=== PATIENT | male | born 1940 | race Caucasian/White ===

== ENCOUNTER 2019-09-30 15:06 | Observation (INO) | payer MEDICARE ==
[2019-09-30] MEDS ORDERED: MORPHINE SULFATE 4 MG/ML SYRINGE IVP STA (15:18)
--- NOTE | 2019-09-30 15:18 | ED ---
Chest Pain HPI - General Chief Complaint: Chest Pain Stated Complaint: Chest pain Time Seen by Provider: 09/30/19 15:10 Source: EMS Mode of arrival: EMS Limitations: no limitations - History of Present Illness Initial Comments: The patient is a 79-year-old male with past medical history of hypertension hyperlipidemia presents to the emergency department reporting chest pain. He states it started 3 days ago and has been intermittent. Pain is getting worse. He saw Dr. Foote in office today for the pain. He describes it as pleuritic in nature. Hurts with every inspiration. Denies reproduction with palpation. Denies history of DVT or PE. No lower externally swelling. No calf pain. No recent travel. No exogenous hormone use. No history of cancer. He denies feeling shortness of breath. No nausea, vomiting or diaphoresis. No history of cardiac disease. Denies ever having stress test or catheterization. Denies cough or shortness of breath The remainder of the HPI is limited as the patient is a poor historian. - Related Data Home Medications Medication Instructions Recorded Confirmed Donepezil [Aricept] 10 mg PO HS 09/15/15 09/30/19 Escitalopram [Lexapro] 20 mg PO DAILY 09/15/15 09/30/19 Furosemide [Lasix] 20 mg PO DAILY 09/15/15 09/30/19 Melatonin 3 mg PO HS 09/15/15 09/30/19 Montelukast [Singulair] 10 mg PO HS 09/15/15 09/30/19 Simvastatin [Zocor] 20 mg PO HS 09/15/15 09/30/19 hydrALAZINE HCL [Apresoline] 50 mg PO BID 09/30/19 09/30/19 tiZANidine HCL 4 mg PO Q6H 09/30/19 09/30/19 Allergies Allergy/AdvReac Type Severity Reaction Status Date / Time No Known Allergies Allergy Verified 09/30/19 17:39 Review of Systems ROS Statement: Those systems with pertinent positive or pertinent negative responses have been documented in the HPI. ROS Other: All systems not noted in ROS Statement are negative. EKG Findings - EKG Comments: EKG Findings:: EKG demonstrates normal sinus rhythm with a ventricular rate of 74. NC interval 186. QRS 102. QTC of 446. No acute ST segment elevations or depressions concerning for ischemic changes Past Medical History Past Medical History: Hyperlipidemia, Hypertension Additional Past Medical History / Comment(s): trauma from fall in 2004 History of Any Multi-Drug Resistant Organisms: None Reported Past Surgical History: Back Surgery, Joint Replacement, Orthopedic Surgery Additional Past Surgical History / Comment(s): orthopedic surgeries from trauma, neck Past Psychological History: Depression Smoking Status: Former smoker Past Alcohol Use History: None Reported Past Drug Use History: None Reported General Exam Limitations: no limitations General appearance: alert, in no apparent distress Head exam: Present: atraumatic, normocephalic, normal inspection Eye exam: Present: normal appearance, PERRL, EOMI. Absent: scleral icterus, conjunctival injection, periorbital swelling ENT exam: Present: normal exam, mucous membranes moist Neck exam: Present: normal inspection. Absent: tenderness, meningismus, lymphadenopathy Respiratory exam: Present: normal lung sounds bilaterally. Absent: respiratory distress, wheezes, rales, rhonchi, stridor Cardiovascular Exam: Present: regular rate, normal rhythm, normal heart sounds. Absent: systolic murmur, diastolic murmur, rubs, gallop, clicks GI/Abdominal exam: Present: soft, normal bowel sounds. Absent: distended, tenderness, guarding, rebound, rigid Extremities exam: Present: normal inspection, full ROM, normal capillary refill. Absent: tenderness, pedal edema, joint swelling, calf tenderness Back exam: Present: normal inspection Neurological exam: Present: alert, oriented X3, CN II-XII intact Psychiatric exam: Present: normal affect, normal mood Skin exam: Present: warm, dry, intact, normal color. Absent: rash Course Vital Signs 09/30/19 09/30/19 09/30/19 15:10 17:19 18:07 Temperature 98.3 F Pulse Rate 75 86 72 Respiratory 16 16 16 Rate Blood Pressure 141/77 161/89 165/94 O2 Sat by Pulse 99 99 98 Oximetry - Reevaluation(s) Reevaluation #1: 09/30/19 17:[address] Foote and we will not heparinize the patient Chest Pain MDM - MDM Upon arrival the patient is placed in room 10. A thorough history and physical exam was performed. PIV is established. Laboratory studies were conducted. D- dimer elevated at 1.5. First troponin is negative. Patient does have a chest x-ray performed followed by a CT of the chest because of elevated d-dimer with reported pleuritic chest pain. Does demonstrate a wall defect in the right pulmonary artery measuring 8 mm concerning for a possible chronic thrombus. I discussed the case with the patient. Also discussed case with Dr. Foote. We agreed to not heparinize the patient. He'll be admitted for chest pain rule out. I will consult pulmonology and cardio G. Patient remained in stable condition. He is given 4 mg morphine for pain control and had resolution of his pain. Patient was then transferred to the floor in stable condition Disposition Clinical Impression: Chest pain, Filling defect on imaging study Disposition: ADMITTED IP TO THIS [facility] Condition: Stable Is patient prescribed a controlled substance at d/c from ED?: No Decision to Admit Reason: Admit from EC Decision Date: 09/30/19 Decision Time: 17:31
[2019-09-30 15:34] LABS: Basophils % (A) 1 %; Eosinophils # (A) 0.2 k/uL (0-0.7); Eosinophils % (A) 4 %; HCT 37.6 % (39.0-53.0); HGB 12.4 gm/dL (13.0-17.5); Lymphocytes % (A) 21 %; MCH 28.7 pg (25.0-35.0); MCHC 32.9 g/dL (31.0-37.0); MCV 87.1 fL (80.0-100.0); Mean Platelet Volume 8.4; Monocytes # (A) 0.4 k/uL (0-1.0); Monocytes % (A) 8 %; Neutrophils # (A) 2.9 k/uL (1.3-7.7); Neutrophils % (A) 64 %; Platelet Count 260 k/uL (150-450); RBC 4.32 m/uL (4.30-5.90); RDW 15.6 % (11.5-15.5); WBC 4.6 k/uL (3.8-10.6)
--- NOTE | 2019-09-30 15:48 | XR ---
EXAMINATION TYPE: XR chest 2V DATE OF EXAM: 09/30/2019 COMPARISON: Chest x-ray July 08, 2014 HISTORY: Chest pain for 3 days. TECHNIQUE: Frontal and lateral views of the chest are obtained. FINDINGS: Somewhat low lung volumes redemonstrated. There is no focal air space opacity, pleural eff usion, or pneumothorax seen. The cardiac silhouette size is stable and upper limits of normal with a therosclerotic and ectatic thoracic aorta redemonstrated. Surgical change cervical spine along with b oth shoulders is redemonstrated. IMPRESSION: Chronic changes without new acute pulmonary process.
[2019-09-30 15:54] LABS: INR 0.9 (<1.2); Partial Thromboplastin Time 25.1 sec (22.0-30.0); Prothrombin Time 9.7 sec (9.0-12.0)
[2019-09-30 15:56] LABS: D-Dimer 1.55 mg/L FEU (<0.60)
[2019-09-30 16:33] LABS: Albumin 4.2 g/dL (3.5-5.0); Calcium 9.3 mg/dL (8.4-10.2); Magnesium 2.1 mg/dL (1.6-2.3); Potassium 4.3 mmol/L (3.5-5.1); Total Bilirubin 0.4 mg/dL (0.2-1.3); Total Protein 7.2 g/dL (6.3-8.2)
--- NOTE | 2019-09-30 17:21 | CT ---
EXAMINATION TYPE: CT chest angio for PE DATE OF EXAM: 09/30/2019 COMPARISON: None HISTORY: Chest pain. Elevated d-dimer. CT DLP: 746.4 mGycm Automated exposure control for dose reduction was used. CONTRAST: Performed with IV Contrast, patient injected with 100 mL of Isovue 370. There is some mild subsegmental atelectasis at the lung bases. There is no evidence of a pulmonary ma ss. There is no pleural effusion. There is no pericardial effusion. Heart is normal in size. There are no hilar masses. There is no mediastinal adenopathy. There are lar ge central pulmonary arteries. There is 8 mm filling defect on the posterior wall of the right pulmon henna artery. This could be some chronic thrombus adherent to the wall. I see no definite distal pulmon henna embolism.The smaller branches of the pulmonary arteries appear attenuated in the lower lobes on t he right side more than the left. There are spondylotic multilevel changes in the thoracic spine. There is no compression fracture. Kristofer rnum is intact. The ribs appear intact. IMPRESSION: Wall defect in the right pulmonary artery. There is pruning and attenuation of the lower lobe pulmona ry arteries on the right side more than the left. This could be the sequela of chronic pulmonary embo lism. I do not see evidence for acute pulmonary embolism. No right heart enlargement seen. Mild interstitial density and subsegmental atelectasis at the lung bases.
[2019-09-30] MEDS ORDERED: NALOXONE 0.4 MG/ML 1 ML VIAL IV PRN (17:32)
[2019-09-30] MEDS ORDERED: MORPHINE SULFATE 2 MG/ML SYRINGE IVP PRN (19:56)
[2019-09-30] MEDS: MELATONIN 3 MG TABLET PO SCH (21:21)
[2019-09-30] MEDS: hydrALAZINE HCL 50 MG TAB PO SCH (21:21)
[2019-09-30] MEDS: ATORVASTATIN 10 MG TAB PO SCH (21:21)
[2019-09-30] MEDS: MONTELUKAST 10 MG TAB PO SCH (21:21)
[2019-09-30] MEDS: tiZANidine 4 MG TAB PO SCH (21:22)
[2019-09-30] MEDS: DONEPEZIL 10 MG TAB PO SCH (21:22)
--- NOTE | 2019-10-01 07:57 | P.HPIM ---
History of Present Illness H&P Date: 10/01/19 Chief Complaint: Chest pain This is a history of physical 71-year-old white male with history of hypertension and hyperlipidemia severe DJD and history of opiate dependence who, has not been seen in the office in the last year was consequently dropped off by his for significant chest pressure. No acute ST-T wave elevation however there were EKG changes which were somewhat vague, and because of his overall symptomatology with substernal chest pressure he was appropriately admitted for rule out myocardial infraction. The patient states some dizziness and has been pain free this morning. No nausea no vomiting no diaphoresis but there is significant dyspnea on exertion. No edema or orthopnea stated. Review of Systems Constitutional: Denies chills, Denies fever Eyes: denies blurred vision, denies pain Ears, nose, mouth and throat: Denies headache, Denies sore throat Cardiovascular: Reports as per HPI, Reports chest pain, Reports decreased exe rcise tolerance, Denies edema, Denies shortness of breath Respiratory: Denies cough Gastrointestinal: Denies abdominal pain, Denies diarrhea, Denies nausea, Denies vomiting Musculoskeletal: Denies myalgias Past Medical History Past Medical History: Hyperlipidemia, Hypertension Additional Past Medical History / Comment(s): trauma from fall in 2004 History of Any Multi-Drug Resistant Organisms: None Reported Past Surgical History: Back Surgery, Joint Replacement, Orthopedic Surgery Additional Past Surgical History / Comment(s): orthopedic surgeries from trauma, neck Past Psychological History: Depression Smoking Status: Former smoker Past Alcohol Use History: None Reported Past Drug Use History: None Reported Medications and Allergies Home Medications Medication Instructions Recorded Confirmed Type Donepezil [Aricept] 10 mg PO HS 09/15/15 09/30/19 History Escitalopram [Lexapro] 20 mg PO DAILY 09/15/15 09/30/19 History Furosemide [Lasix] 20 mg PO DAILY 09/15/15 09/30/19 History Melatonin 3 mg PO HS 09/15/15 09/30/19 History Montelukast [Singulair] 10 mg PO HS 09/15/15 09/30/19 History Simvastatin [Zocor] 20 mg PO HS 09/15/15 09/30/19 History hydrALAZINE HCL [Apresoline] 50 mg PO BID 09/30/19 09/30/19 History tiZANidine HCL 4 mg PO Q6H 09/30/19 09/30/19 History Allergies Allergy/AdvReac Type Severity Reaction Status Date / Time No Known Allergies Allergy Verified 09/30/19 17:39 Physical Exam Vitals: Vital Signs Temp Pulse Pulse Resp BP BP Pulse Ox 10/01/19 04:00 61 16 10/01/19 03:33 97.6 F 61 16 150/72 97 10/01/19 00:00 98.7 F 70 16 157/83 95 09/30/19 20:00 91 16 09/30/19 19:30 91 16 193/82 96 09/30/19 18:45 98.1 F 72 18 172/91 94 L 09/30/19 18:07 72 16 165/94 98 09/30/19 17:19 86 16 161/89 99 09/30/19 15:10 98.3 F 75 16 141/77 99 Intake and Output 09/30/19 10/01/19 10/01/19 22:59 06:59 14:59 Intake Total 480 Balance 480 Intake: Oral 480 Other: # Voids 1 1 Weight 113.398 kg Results CBC & Chem 7: 09/30/19 15:22 09/30/19 15:22 Labs: Abnormal Lab Results - Last 24 Hours (Table) 09/30/19 09/30/19 09/30/19 Range/Units 15:22 15:22 15:22 Hgb 12.4 L (13.0-17.5) gm/dL Hct 37.6 L (39.0-53.0) % RDW 15.6 H (11.5-15.5) % D-Dimer 1.55 H (<0.60) mg/L FEU Chloride 109 H (98-107) mmol/L Thrombosis Risk Factor Assmnt - Choose All That Apply Each Factor Represents 1 point: Obesity (BMI >25), Swollen legs (current) Other Risk Factors: No Other congenital or acquired thrombophilia - If yes, enter type in comment: No Thrombosis Risk Factor Assessment Total Risk Factor Score: 2 Thrombosis Risk Factor Assessment Level: Low Risk Assessment and Plan (1) Hypertension Current Visit: Yes Status: Acute Code(s): I10 - ESSENTIAL (PRIMARY) HYPERTENSION SNOMED Code(s): 56936221 (2) Hyperlipidemia Current Visit: Yes Status: Acute Code(s): E78.5 - HYPERLIPIDEMIA, UNSPECIFIED SNOMED Code(s): 56557214 (3) DJD (degenerative joint disease) Current Visit: Yes Status: Acute Code(s): M19.90 - UNSPECIFIED OSTEOARTHRITIS, UNSPECIFIED SITE SNOMED Code(s): 880622270 (4) Chest pain Current Visit: Yes Status: Acute Code(s): R07.9 - CHEST PAIN, UNSPECIFIED SNOMED Code(s): 63960169 (5) Filling defect on imaging study Current Visit: Yes Status: Acute Code(s): R93.89 - ABNORMAL FINDINGS ON DX IMAGING OF OTH BODY STRUCTURES SNOMED Code(s): 77865169 Plan: Possible chronic filling defect noted on CT. Rule out myocardial infarction. Reconcile medications. Engineer Byproduct consulted-question need for appropriate cardiac testing. The patient is full code at this time. See orders otherwise. Time with Patient: Greater than 30
[2019-10-01 08:45] LABS: African American GFR (CKD) >90 (>60 ml/min/1.73 sqM); Anion Gap 6 mmol/L; Blood Urea Nitrogen 19 mg/dL (9-20); Calcium 8.6 mg/dL (8.4-10.2); Carbon Dioxide 26 mmol/L (22-30); Chloride 107 mmol/L (98-107); Glucose 88 mg/dL (74-99); Non-African American GFR(CKD) 84 (>60 ml/min/1.73 sqM); Potassium 4.1 mmol/L (3.5-5.1); Sodium 139 mmol/L (137-145)
[2019-10-01 09:37] LABS: Basophils % (A) 1 %; Eosinophils # (A) 0.2 k/uL (0-0.7); Eosinophils % (A) 5 %; HCT 34.9 % (39.0-53.0); HGB 11.4 gm/dL (13.0-17.5); Lymphocytes % (A) 30 %; MCH 28.9 pg (25.0-35.0); MCHC 32.5 g/dL (31.0-37.0); MCV 88.8 fL (80.0-100.0); Mean Platelet Volume 7.5; Monocytes # (A) 0.3 k/uL (0-1.0); Monocytes % (A) 8 %; Neutrophils # (A) 1.8 k/uL (1.3-7.7); Neutrophils % (A) 54 %; Platelet Count 199 k/uL (150-450); RBC 3.93 m/uL (4.30-5.90); RDW 15.9 % (11.5-15.5); WBC 3.3 k/uL (3.8-10.6)
[2019-10-01] MEDS ORDERED: MORPHINE SULFATE 2 MG/ML SYRINGE IVP PRN (10:33)
[2019-10-01] MEDS: FUROSEMIDE 20 MG TAB PO SCH (10:40)
[2019-10-01] MEDS: tiZANidine 4 MG TAB PO SCH ×4 (10:40→23:46)
[2019-10-01] MEDS: hydrALAZINE HCL 50 MG TAB PO SCH ×2 (10:40→20:41)
[2019-10-01] MEDS: ESCITALOPRAM 20 MG TAB PO SCH (10:40)
--- NOTE | 2019-10-01 11:35 | CONS ---
CONSULTATION PULMONARY/CRITICAL CARE CONSULTATION: DATE OF SERVICE: 10/01/2019 REASON FOR CONSULTATION: Chest pain, abnormal CT angiogram. This is a 79-year-old gentleman who was initially seen in the emergency room on September 29. He apparently was evaluated by Dr. Blackwood. The patient apparently came into the emergency room complaining of chest pain. It apparently had been going on for a day or two prior to admission. The pain now is completely dissipated. He describes it as a sharp pain and also a dull pain in the center of his chest. I asked him whether or not it was reproducible and he said no. He denies any injury. He does have a history of hypertension and hyperlipidemia. He does also complain of some mild shortness of breath on exertion. Some features of the pain appear to be pleuritic in nature in that it seems to be a bit worse when he takes a deep breath. The pain is more dull, than sharp though. He denies any fever or chills. There is no cough or phlegm production. He is not short of breath at rest only when he exerts himself. He denies history of any chronic lung disease. Denies any trauma to his chest. Again, he states that currently, the chest pain is dissipated. Interestingly, when I palpate the anterior chest, he almost jumps off the bed. MEDICATIONS: Reviewed. He has a history of being on Aricept, Lexapro, Lasix melatonin, Singulair, Zocor, Apresoline, and tizanidine. ALLERGIES: Denied. MEDICAL HISTORY: Hypertension and hyperlipidemia. He denies a previous history of lung disease. Other medical history includes trauma to his chest and back years ago when he fell, back in 2004. SURGICAL HISTORY: Includes surgery to the back and neck area as well as joint replacement. SOCIAL HISTORY: Positive for about 50 years of tobacco use many years back. He smoked a pack a day. 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 Denies any alcohol or any illicit drug use. FAMILY HISTORY: Noncontributory as he states his parents were healthy. REVIEW OF SYSTEMS: CONSTITUTIONAL: Negative. NEUROLOGIC: Negative. HEENT: Negative. CARDIOVASCULAR: Chest pain. PULMONARY: Shortness of breath on exertion, minimal. GI: Negative. : Negative. RHEUMATOLOGIC: Negative. IMMUNOLOGIC: Negative. ENDOCRINOLOGIC: Negative. DERMATOLOGIC: Negative. Current vital signs are reviewed, temperature is 97.6, heart rate 61, respiratory rate 16, blood pressure 150/72, room air saturation 97%. Appears in no acute distress. HEENT: Examination is unremarkable. Not receiving any supplemental oxygen. NECK: Supple. CARDIOVASCULAR: Examination reveals regular rhythm and rate. S1, S2 normal. Heart rate is about 60 to 65 beats per minute. No murmur. LUNGS: Clear, breath sounds equal. No wheezes, rhonchi, or crackles. ABDOMEN: Obese. Bowel sounds are heard. EXTREMITIES: Intact. No edema. SKIN: Without rash. NEUROLOGIC: Examination is nonfocal. When I palpate the anterior chest, the patient nearly jumps off the bed. It is clearly reproducible and likely musculoskeletal in origin. LABS: Reviewed. White count 4.6, hemoglobin 12.4, hematocrit 37.6, platelet count 260,000. PT, INR, PTT all normal. D-dimer was elevated 155, hence the CT angiogram. The electrolytes are essentially all normal. Troponins were negative x3. N terminal proBNP normal. The rest of the comprehensive metabolic profile was normal. Chest x-ray shows no acute abnormalities. CT angiogram was evaluated by herself. It does show a small wall defect measuring about 8 mm in the right pulmonary artery. There is nothing that suggested acute pulmonary embolism. There was no right heart enlargement. The radiologist raised the Specter of chronic thromboembolic disease. Medications are reviewed. ASSESSMENT: 1. Chest pain, likely related to chest wall syndrome as it is very reproducible. 2. Mild shortness of breath, which may be related to deconditioning. The patient did smoke for about 15 years many years back. Doubt significant chronic lung disease. 3. A CT angiogram showing an 8 mm wall defect in the right pulmonary artery, raising the specter of chronic thromboembolic disease. 4. History of hypertension. 5. History of hyperlipidemia. 6. Obesity. 7. Prior history of tobacco use. PLAN: The patient clearly has chest wall syndrome. This should be treated with warm compresses, and anti-inflammatories. The CT angiogram suggests an 8 mm pulmonary artery wall defect. This could suggest chronic thromboembolic disease. If that is a concern, then an echocardiogram to rule out pulmonary hypertension and a ventilation- perfusion scan which is useful in making a diagnosis of chronic thromboembolic pulmonary hypertension would be useful. This patient really deserves a more thorough outpatient evaluation with 6 minute walk distance, PFTs, echocardiogram, and ventilation-perfusion lung scan. I would be certainly happy to see him or Dr. Escalante would be happy to see him in the office after discharge. No additional recommendations are made at this time. Thank you very much for this consultation. FARRAH / MED: [id number] / RADHA
--- NOTE | 2019-10-01 15:26 | P.CRDCN ---
History of Present Illness Consult date: 10/01/19 History of present illness: This is a 79-year-old gentleman who was admitted to the hospital with complaints of chest pain. The chest pain has been going on for a couple of days prior to admission. The pain is felt in the center of the chest and it is aggravated by deep breathing and coughing. He will movements within the bed from one side to the other would aggravate the pain. Patient has severe tenderness in the middle of the chest. His EKG did not reveal any acute changes. His cardiac enzymes are negative. His chest pains are muscular skeletal and not cardiac in nature. No further cardiac workup at this time. Patient has history of hypertension and also hyperlipidemia. Located history of previous myocardial infarction. His a computed tomography scan showed evidence of defect in the right pulmonary artery. A pulmonary consult is being obtained Review of Systems As per the chart Past Medical History Past Medical History: Hyperlipidemia, Hypertension Additional Past Medical History / Comment(s): trauma from fall in 2004 History of Any Multi-Drug Resistant Organisms: None Reported Past Surgical History: Back Surgery, Joint Replacement, Orthopedic Surgery Additional Past Surgical History / Comment(s): orthopedic surgeries from trauma, neck Past Psychological History: Depression Smoking Status: Former smoker Past Alcohol Use History: None Reported Past Drug Use History: None Reported Medications and Allergies Home Medications Medication Instructions Recorded Confirmed Type Donepezil [Aricept] 10 mg PO HS 09/15/15 09/30/19 History Escitalopram [Lexapro] 20 mg PO DAILY 09/15/15 09/30/19 History Furosemide [Lasix] 20 mg PO DAILY 09/15/15 09/30/19 History Melatonin 3 mg PO HS 09/15/15 09/30/19 History Montelukast [Singulair] 10 mg PO HS 09/15/15 09/30/19 History Simvastatin [Zocor] 20 mg PO HS 09/15/15 09/30/19 History hydrALAZINE HCL [Apresoline] 50 mg PO BID 09/30/19 09/30/19 History tiZANidine HCL 4 mg PO Q6H 09/30/19 09/30/19 History Allergies Allergy/AdvReac Type Severity Reaction Status Date / Time No Known Allergies Allergy Verified 09/30/19 17:39 Physical Exam Vitals: Vital Signs Temp Pulse Pulse Resp BP BP Pulse Ox 10/01/19 15:20 66 18 147/82 96 10/01/19 08:15 61 16 174/83 99 10/01/19 04:00 61 16 10/01/19 03:33 97.6 F 61 16 150/72 97 10/01/19 00:00 98.7 F 70 16 157/83 95 09/30/19 20:00 91 16 09/30/19 19:30 91 16 193/82 96 09/30/19 18:45 98.1 F 72 18 172/91 94 L 09/30/19 18:07 72 16 165/94 98 09/30/19 17:19 86 16 161/89 99 Intake and Output 10/01/19 10/01/19 10/01/19 06:59 14:59 22:59 Other: # Voids 1 GENERAL EXAM: Patient is alert and oriented and doesn't appear to be in any acute distress HEENT: Normocephalic. Normal reaction of pupils, equal size, normal range of extraocular motion. No erythema or exudates in the throat. NECK: No masses, no nuchal rigidity. CHEST: No chest wall deformity. Severe tenderness in the middle of the chest LUNGS: . Clear HEART: S1 and S2 normal with no audible mumurs or gallops. Regular rhythm, femorals equal on both sides.. ABDOMEN: No hepatosplenomegaly, normal bowel sounds, no guarding or rigidity. SKIN: No rashes CENTRAL NERVOUS SYSTEM: No focal deficits. EXTREMITIES: No cyanosis, clubbing or edema. Results 10/01/19 07:43 10/01/19 07:43 Cardiac Enzymes 09/30/19 09/30/19 09/30/19 Range/Units 15:22 15:22 18:15 AST 27 (17-59) U/L Troponin I <0.012 <0.012 (0.000-0.034) ng/mL 09/30/19 Range/Units 21:50 AST (17-59) U/L Troponin I <0.012 (0.000-0.034) ng/mL Coagulation 09/30/19 Range/Units 15:22 PT 9.7 (9.0-12.0) sec APTT 25.1 (22.0-30.0) sec CBC 09/30/19 10/01/19 Range/Units 15:22 07:43 WBC 4.6 3.3 L (3.8-10.6) k/uL RBC 4.32 3.93 L (4.30-5.90) m/uL Hgb 12.4 L 11.4 L (13.0-17.5) gm/dL Hct 37.6 L 34.9 L (39.0-53.0) % Plt Count 260 199 (150-450) k/uL Comprehensive Metabolic Panel 09/30/19 10/01/19 Range/Units 15:22 07:43 Sodium 140 139 (137-145) mmol/L Potassium 4.3 4.1 (3.5-5.1) mmol/L Chloride 109 H 107 (98-107) mmol/L Carbon Dioxide 24 26 (22-30) mmol/L BUN 14 19 (9-20) mg/dL Creatinine 0.98 0.84 (0.66-1.25) mg/dL Glucose 85 88 (74-99) mg/dL Calcium 9.3 8.6 (8.4-10.2) mg/dL AST 27 (17-59) U/L ALT 13 (4-49) U/L Alkaline Phosphatase 91 (38-126) U/L Total Protein 7.2 (6.3-8.2) g/dL Albumin 4.2 (3.5-5.0) g/dL Current Medications Generic Name Dose Route Start Last Admin Trade Name Freq PRN Reason Stop Dose Admin Atorvastatin Calcium 10 mg 09/30/19 21:00 09/30/19 21:21 Lipitor PO 10 mg HS VELVET Administration Donepezil HCl 10 mg 09/30/19 21:00 09/30/19 21:22 Aricept PO 10 mg HS VELVET Administration Escitalopram Oxalate 20 mg 10/01/19 09:00 10/01/19 10:40 Lexapro PO 20 mg DAILY VELVET Administration Furosemide 20 mg 10/01/19 09:00 10/01/19 10:40 Lasix PO 20 mg DAILY VELVET Administration Hydralazine HCl 50 mg 09/30/19 21:00 10/01/19 10:40 Apresoline PO 50 mg BID VELVET Administration Melatonin 3 mg 09/30/19 21:00 09/30/19 21:21 Melatonin PO 3 mg HS VELVET Administration Montelukast Sodium 10 mg 09/30/19 21:00 09/30/19 21:21 Singulair PO 10 mg HS VELVET Administration Morphine Sulfate 1 mg 09/30/19 19:56 09/30/19 21:24 Morphine Sulfate (Inj) IVP 1 mg Q4H PRN Administration Pain/Discomfort Morphine Sulfate 2 mg 10/01/19 10:33 10/01/19 10:41 Morphine Sulfate (Inj) IVP 2 mg Q4H PRN Administration Pain Scale 8 to 10 Naloxone HCl 0.2 mg 09/30/19 17:32 Narcan IV Q2M PRN Opioid Reversal Tizanidine HCl 4 mg 10/01/19 00:00 10/01/19 12:05 Zanaflex PO Not Given Q6HR VELVET Intake and Output 10/01/19 10/01/19 10/01/19 06:59 14:59 22:59 Other: # Voids 1 10/01/19 07:43 10/01/19 07:43 EKG Interpretations (text) Sinus rhythm Assessment and Plan (1) Chest pain Current Visit: Yes Status: Acute Code(s): R07.9 - CHEST PAIN, UNSPECIFIED SNOMED Code(s): 28646236 (2) DJD (degenerative joint disease) Current Visit: Yes Status: Acute Code(s): M19.90 - UNSPECIFIED OSTEOARTHRITIS, UNSPECIFIED SITE SNOMED Code(s): 190224809 (3) Hyperlipidemia Current Visit: Yes Status: Acute Code(s): E78.5 - HYPERLIPIDEMIA, UNSPECIFIED SNOMED Code(s): 68321205 (4) Hypertension Current Visit: Yes Status: Acute Code(s): I10 - ESSENTIAL (PRIMARY) HYPERTENSION SNOMED Code(s): 79852664 Plan: His chest pain is muscular skeletal. No further cardiac workup at this time. Thank you for the consult
[2019-10-01 15:50] LABS: Appearance,Urine Clear (Clear); Bilirubin,Urine Negative (Negative); Blood,Urine Negative (Negative); Color,Urine Yellow; Glucose,Urine (UA) Negative (Negative); Ketones,Urine Negative (Negative); Leukocyte Esterase,Urine Negative (Negative); Nitrite,Urine Negative (Negative); Protein,Urine Negative (Negative); Specific Gravity,Urine 1.018 (1.001-1.035)
[2019-10-01] MEDS ORDERED: KETOROLAC 30 MG/ML 1 ML VIAL IVP STA (16:24)
--- NOTE | 2019-10-01 16:32 | ECHOF ---
Referral Reason:chest pain MEASUREMENTS -------- HEIGHT: 175.3 cm WEIGHT: 113.4 kg BP: 174/88 FINDINGS -------- This was a technically difficult study with suboptimal views. ATTEMPTED LIMITED STUDY . Patient was having chest pain when scanned. Humphreys not well visulized.Lv function appears fair The RV was not well visualized. The left atrium was not well visualized. The right atrium was not well visualized. xx ml of Lumason was utilized for enhancement of images. The aortic valve was not well visualized. The mitral valve was not well visualized. The tricuspid valve was not well visualized. The pulmonic valve was not well visualized. CONCLUSIONS -------- 1. This was a technically difficult study with suboptimal views. 2. ATTEMPTED LIMITED STUDY, Patient was having chest pain when scanned. 3. Humphreys not well visulized. 4. The RV was not well visualized. 5. The left atrium was not well visualized. 6. The right atrium was not well visualized. 7. xx ml of Lumason was utilized for enhancement of images. 8. The aortic valve was not well visualized. 9. The mitral valve was not well visualized. 10. The tricuspid valve was not well visualized. 11. The pulmonic valve was not well visualized. PSYCHOLOGICAL OPERATIONS OFFICER: Tressa Maher [facility]
[2019-10-01] MEDS: DONEPEZIL 10 MG TAB PO SCH (20:40)
[2019-10-01] MEDS ORDERED: ACETAMINOPHEN TAB 325 MG TAB PO PRN ×2 (22:13→23:06)
[2019-10-01] MEDS: ATORVASTATIN 10 MG TAB PO SCH (22:18)
[2019-10-01] MEDS: MONTELUKAST 10 MG TAB PO SCH (22:18)
[2019-10-01] MEDS: MELATONIN 3 MG TABLET PO SCH (22:19)
[2019-10-02] MEDS: tiZANidine 4 MG TAB PO SCH ×2 (04:00→12:29)
[2019-10-02 04:06] VITALS: PULSE 62
[2019-10-02 08:35] LABS: Calcium 8.7 mg/dL (8.4-10.2); Potassium 4.2 mmol/L (3.5-5.1)
[2019-10-02] MEDS: ESCITALOPRAM 20 MG TAB PO SCH (09:41)
[2019-10-02] MEDS: hydrALAZINE HCL 50 MG TAB PO SCH (09:41)
[2019-10-02] MEDS: FUROSEMIDE 20 MG TAB PO SCH (09:41)
[2019-10-02 09:52] VITALS: BP 161/75; RESP 14; TEMP 97.5
--- NOTE | 2019-10-02 11:54 | PN ---
PROGRESS NOTE PULMONARY/CRITICAL CARE PROGRESS NOTE: DATE OF SERVICE: October 02, 2019 This is a 79-year-old gentleman who we saw in consultation yesterday. He had chest wall syndrome. He had exquisite pain to the anterior chest. We recommended warm compresses and nonsteroidal anti-inflammatory drugs. In addition, he complained of mild shortness of breath, particularly with exertion. We thought this related to underlying deconditioning. We doubted significant chronic lung disease, although the patient will follow up in our office with a PFTs. Finally, the patient had an 8 mm wall defect in the right pulmonary artery raising the suspicion or Specter of chronic thromboembolic disease. We recommend an echocardiogram and a ventilation-perfusion lung scan. He also suffers from hypertension, hyperlipidemia and obesity. Currently, he is feeling much better. PHYSICAL EXAMINATION: VITAL SIGNS: Current vital signs include: Temperature 97.5. Heart rate 62, respiratory rate 14, blood pressure 161/75 mean 103, room air saturation 96%. GENERAL: Appears in no acute distress. No respiratory distress. His pain is seems to be better. HEENT: Examination is grossly unremarkable. Mucous membranes are moist. NECK: Supple. Full range of motion. No adenopathy. Neck veins are flat. CARDIOVASCULAR: Examination reveals regular rhythm and rate. S1, S2 normal. Heart rate 62. LUNGS: Reveal clear. Breath sounds equal bilaterally. No wheezes, rhonchi, or crackles. ABDOMEN: Soft. Bowel sounds are heard. EXTREMITIES are intact. No cyanosis, clubbing, or edema. SKIN: Without rash. NEUROLOGIC: Examination is brief but nonfocal. Palpation of the anterior chest still reveals some tenderness on palpation, although it is much improved. LABS: Reviewed. Sodium 137, potassium 4.2, chloride 106. CO2 23. Anion gap is 8. BUN and creatinine were 19 and 1.0. Urine is noted. It is normal. ASSESSMENT: 1. Chest wall pain, likely related to chest wall syndrome/costochondritis. His pain is much improved. 2. Mild shortness of breath, which may relate to underlying chronic lung disease, although I doubt it. It more likely relates to underlying deconditioning. 3. CT angiogram evidence of an 8 mm wall defect in the right pulmonary artery, raising the Specter of chronic thromboembolic disease. 4. History of hypertension. 5. Hyperlipidemia. 6. Obesity. 7. Prior history of tobacco use for about 15 years. PLAN: The patient will see us in the office for a 6 minute walk distance and a PFT. In the interim, the patient should have an echocardiogram and a ventilation-perfusion lung scan. Depending on the findings, he may need additional evaluation at the pulmonary hypertension clinic such at [facility], or [facility], or [facility]. Additional recommendations and suggestions are forthcoming. Prognosis is guarded. We will continue to follow. MMODL / IJN: [id number] /
== END 2019-10-02 13:15 | disposition home or self-care (01) ==
LOC: EC 15:06 → 1SOBS 17:32
PROVIDERS: ADMIT Family Medicine; ATTEND Family Medicine
DX: R07.9 Chest pain, unspecified (principal); R06.02 Shortness of breath; R93.89 Abnormal findings on diagnostic imaging of other specified body structures; I10 Essential (primary) hypertension; E78.5 Hyperlipidemia, unspecified; Z87.891 Personal history of nicotine dependence; F32.9 Major depressive disorder, single episode, unspecified; M19.90 Unspecified osteoarthritis, unspecified site; E66.9 Obesity, unspecified; Z68.37 Body mass index [BMI] 37.0-37.9, adult; Z98.890 Other specified postprocedural states; F19.21 Other psychoactive substance dependence, in remission; I25.2 Old myocardial infarction; Z91.81 History of falling; Z79.899 Other long term (current) drug therapy
CPT/HCPCS: 93005 ×2; 96375; 96376 ×2; 96374; 99285; 36415; 85379; 83880; 80053; 80048 ×2; 83690; 83735; 84484; 85025 ×2; 85610; 85730; 81003; 71046; 71275; G0378 ×3; C8924; U0003; J2270 ×3; J1885; Q9950; Q9967; 93308

== ENCOUNTER 2020-03-17 14:33 | Inpatient (IN) | payer MEDICARE ==
--- NOTE | 2020-03-17 15:29 | ED ---
Altered Mental Status HPI - General Chief Complaint: Altered Mental Status Stated Complaint: Mental eval Time Seen by Provider: 03/17/20 14:35 Source: patient, family Mode of arrival: ambulatory Limitations: no limitations - History of Present Illness Initial Comments: Patient is a 79-year-old male with past medical history of hypertension and hyperlipidemia who presents to the emergency department for altered mental status. states the symptoms have been present for the past 6 months and he is currently under the care of Dr. Foote for it. Symptoms have been aggressively worse over the past several months with significant decline in the past month. states that her will "randall girls" around on an amigo when they go to the store. He acts "goofy" and she reports that when she attempts to stop him that he gets angry with her. He does have a working diagnosis of Alzheimer's. He has Aricept however reports that he hasn't been taking because the hasn't refilled it. Denies any head trauma. No fevers or chills. Denies any urinary complaints. Patient continues to have a good appetite. He cannot provide any history. He states he is at the hospital because "he is a kangaroo and needs to get his head checked out". He calls all staff kangaroos. The remainder of the HPI is limited - Related Data Home Medications Medication Instructions Recorded Confirmed Donepezil [Aricept] 10 mg PO HS 09/15/15 03/17/20 Escitalopram [Lexapro] 20 mg PO DAILY 09/15/15 03/17/20 Furosemide [Lasix] 20 mg PO DAILY 09/15/15 03/17/20 Melatonin 3 mg PO HS 09/15/15 03/17/20 Montelukast [Singulair] 10 mg PO HS 09/15/15 03/17/20 Simvastatin [Zocor] 20 mg PO HS 09/15/15 03/17/20 hydrALAZINE HCL [Apresoline] 50 mg PO BID 09/30/19 03/17/20 tiZANidine HCL 4 mg PO Q6H 09/30/19 03/17/20 Allergies Allergy/AdvReac Type Severity Reaction Status Date / Time No Known Allergies Allergy Verified 03/17/20 16:37 Review of Systems ROS Statement: Those systems with pertinent positive or pertinent negative responses have been documented in the HPI. ROS Other: All systems not noted in ROS Statement are negative. Past Medical History Past Medical History: Hyperlipidemia, Hypertension Additional Past Medical History / Comment(s): trauma from fall in 2004 History of Any Multi-Drug Resistant Organisms: None Reported Past Surgical History: Back Surgery, Joint Replacement, Orthopedic Surgery Additional Past Surgical History / Comment(s): orthopedic surgeries from trauma, neck Past Psychological History: Depression Past Alcohol Use History: None Reported Past Drug Use History: None Reported General Exam Limitations: no limitations General appearance: alert, in no apparent distress Head exam: Present: atraumatic, normocephalic, normal inspection Eye exam: Present: normal appearance, PERRL, EOMI. Absent: scleral icterus, conjunctival injection, periorbital swelling ENT exam: Present: normal exam, mucous membranes moist Neck exam: Present: normal inspection. Absent: tenderness, meningismus, lymphad enopathy Respiratory exam: Present: normal lung sounds bilaterally. Absent: respiratory distress, wheezes, rales, rhonchi, stridor Cardiovascular Exam: Present: regular rate, normal rhythm, normal heart sounds. Absent: systolic murmur, diastolic murmur, rubs, gallop, clicks GI/Abdominal exam: Present: soft, normal bowel sounds. Absent: distended, tenderness, guarding, rebound, rigid Extremities exam: Present: normal inspection, full ROM, normal capillary refill. Absent: tenderness, pedal edema, joint swelling, calf tenderness Back exam: Present: normal inspection Neurological exam: Present: alert, CN II-XII intact, other (oriented x1) Psychiatric exam: Present: other (poor judgement, inability to stay on topic) Skin exam: Present: warm, dry, intact, normal color. Absent: rash Course Vital Signs 03/17/20 03/17/20 03/17/20 14:34 16:29 18:48 Temperature 98.0 F Pulse Rate 84 69 68 Respiratory 20 20 18 Rate Blood Pressure 133/74 170/94 150/87 O2 Sat by Pulse 97 95 96 Oximetry 03/17/20 21:00 Temperature Pulse Rate Respiratory 16 Rate Blood Pressure O2 Sat by Pulse Oximetry Medical Decision Making - Medical Decision Making Upon arrival patient is placed into room 19. A thorough history and physical exam was performed. Peripheral IV is established. Laboratory studies were conducted. Patient went for a chest x-ray and a CT of his brain. Laboratory studies are unremarkable. CT of the brain demonstrates moderate diffuse atrophy with no acute intracranial abnormality. Chest x-ray demonstrates no active cardio pulmonary disease. Results are discussed with the patient and his at bedside. I called and discussed the case with Dr. Foote. He believes the patient does have worsening dementia to the point where the patient is getting aggressive at home with his . fears for her safety. He is concerned about the patient living at home and does believe that he needs to be placed in a long-term facility. I do discuss this with the patient's and she does agree that this is true. Dr. Foote accepted admission for the patient. We'll place psychiatry on consult for placement for the patient. He remained in stable condition awaiting a bed on the floor - Lab Data Result diagrams: 03/19/20 06:06 03/19/20 06:06 Lab Results 03/17/20 03/17/20 03/17/20 Range/Units 15:46 15:46 15:46 WBC 3.4 L (3.8-10.6) k/uL RBC 4.32 (4.30-5.90) m/uL Hgb 13.2 (13.0-17.5) gm/dL Hct 37.4 L (39.0-53.0) % MCV 86.5 (80.0-100.0) fL MCH 30.5 (25.0-35.0) pg MCHC 35.3 (31.0-37.0) g/dL RDW 14.0 (11.5-15.5) % Plt Count 197 (150-450) k/uL MPV 9.1 Neutrophils % 62 % Lymphocytes % 23 % Monocytes % 9 % Eosinophils % 3 % Basophils % 1 % Neutrophils # 2.1 (1.3-7.7) k/uL Lymphocytes # 0.8 L (1.0-4.8) k/uL Monocytes # 0.3 (0-1.0) k/uL Eosinophils # 0.1 (0-0.7) k/uL Basophils # 0.1 (0-0.2) k/uL Sodium 136 L (137-145) mmol/L Potassium 4.2 (3.5-5.1) mmol/L Chloride 105 (98-107) mmol/L Carbon Dioxide 23 (22-30) mmol/L Anion Gap 8 mmol/L BUN 9 (9-20) mg/dL Creatinine 0.87 (0.66-1.25) mg/dL Est GFR (CKD-EPI)AfAm >90 (>60 ml/min/1.73 sqM) Est GFR (CKD-EPI)NonAf 83 (>60 ml/min/1.73 sqM) Glucose 124 H (74-99) mg/dL Calcium 8.8 (8.4-10.2) mg/dL Total Bilirubin 0.8 (0.2-1.3) mg/dL AST 37 (17-59) U/L ALT 16 (4-49) U/L Alkaline Phosphatase 88 (38-126) U/L Troponin I (0.000-0.034) ng/mL Total Protein 7.2 (6.3-8.2) g/dL Albumin 3.9 (3.5-5.0) g/dL TSH 2.420 (0.465-4.680) mIU/L Urine Color Yellow Urine Appearance Clear (Clear) Urine pH 5.5 (5.0-8.0) Ur Specific [place] 1.013 (1.001-1.035) Urine Protein Trace H (Negative) Urine Glucose (UA) Negative (Negative) Urine Ketones Negative (Negative) Urine Blood Negative (Negative) Urine Nitrite Negative (Negative) Urine Bilirubin Negative (Negative) Urine Urobilinogen <2.0 (<2.0) mg/dL Ur Leukocyte Esterase Negative (Negative) Salicylates <1.0 mg/dL Urine Opiates Screen Not Detected (NotDetected) Ur Oxycodone Screen Not Detected (NotDetected) Urine Methadone Screen Not Detected (NotDetected) Ur Propoxyphene Screen Not Detected (NotDetected) Acetaminophen <10.0 ug/mL Ur Barbiturates Screen Not Detected (NotDetected) U Tricyclic Antidepress Not Detected (NotDetected) Ur Phencyclidine Scrn Not Detected (NotDetected) Ur Amphetamines Screen Not Detected (NotDetected) U Methamphetamines Scrn Not Detected (NotDetected) U Benzodiazepines Scrn Not Detected (NotDetected) Urine Cocaine Screen Not Detected (NotDetected) U Marijuana (THC) Screen Not Detected (NotDetected) Serum Alcohol <10 mg/dL 03/17/20 Range/Units 15:46 WBC (3.8-10.6) k/uL RBC (4.30-5.90) m/uL Hgb (13.0-17.5) gm/dL Hct (39.0-53.0) % MCV (80.0-100.0) fL MCH (25.0-35.0) pg MCHC (31.0-37.0) g/dL RDW (11.5-15.5) % Plt Count (150-450) k/uL MPV Neutrophils % % Lymphocytes % % Monocytes % % Eosinophils % % Basophils % % Neutrophils # (1.3-7.7) k/uL Lymphocytes # (1.0-4.8) k/uL Monocytes # (0-1.0) k/uL Eosinophils # (0-0.7) k/uL Basophils # (0-0.2) k/uL Sodium (137-145) mmol/L Potassium (3.5-5.1) mmol/L Chloride (98-107) mmol/L Carbon Dioxide (22-30) mmol/L Anion Gap mmol/L BUN (9-20) mg/dL Creatinine (0.66-1.25) mg/dL Est GFR (CKD-EPI)AfAm (>60 ml/min/1.73 sqM) Est GFR (CKD-EPI)NonAf (>60 ml/min/1.73 sqM) Glucose (74-99) mg/dL Calcium (8.4-10.2) mg/dL Total Bilirubin (0.2-1.3) mg/dL AST (17-59) U/L ALT (4-49) U/L Alkaline Phosphatase (38-126) U/L Troponin I 0.023 (0.000-0.034) ng/mL Total Protein (6.3-8.2) g/dL Albumin (3.5-5.0) g/dL TSH (0.465-4.680) mIU/L Urine Color Urine Appearance (Clear) Urine pH (5.0-8.0) Ur Specific [place] (1.001-1.035) Urine Protein (Negative) Urine Glucose (UA) (Negative) Urine Ketones (Negative) Urine Blood (Negative) Urine Nitrite (Negative) Urine Bilirubin (Negative) Urine Urobilinogen (<2.0) mg/dL Ur Leukocyte Esterase (Negative) Salicylates mg/dL Urine Opiates Screen (NotDetected) Ur Oxycodone Screen (NotDetected) Urine Methadone Screen (NotDetected) Ur Propoxyphene Screen (NotDetected) Acetaminophen ug/mL Ur Barbiturates Screen (NotDetected) U Tricyclic Antidepress (NotDetected) Ur Phencyclidine Scrn (NotDetected) Ur Amphetamines Screen (NotDetected) U Methamphetamines Scrn (NotDetected) U Benzodiazepines Scrn (NotDetected) Urine Cocaine Screen (NotDetected) U Marijuana (THC) Screen (NotDetected) Serum Alcohol mg/dL Disposition Clinical Impression: Confusion, Aggressive behavior, Alzheimer's dementia Disposition: ADMITTED IP TO [facility] Condition: Stable Is patient prescribed a controlled substance at d/c from ED?: No Decision to Admit Reason: Admit from EC Decision Date: 03/17/20 Decision Time: 17:09
[2020-03-17 16:23] LABS: ALT 16 U/L (4-49); AST 37 U/L (17-59); Acetaminophen <10.0 ug/mL; African American GFR (CKD) >90 (>60 ml/min/1.73 sqM); Albumin 3.9 g/dL (3.5-5.0); Alcohol <10 mg/dL; Alkaline Phosphatase 88 U/L (38-126); Anion Gap 8 mmol/L; Blood Urea Nitrogen 9 mg/dL (9-20); Calcium 8.8 mg/dL (8.4-10.2); Carbon Dioxide 23 mmol/L (22-30); Chloride 105 mmol/L (98-107); Glucose 124 mg/dL (74-99); Non-African American GFR(CKD) 83 (>60 ml/min/1.73 sqM); Salicylate <1.0 mg/dL; Sodium 136 mmol/L (137-145); Total Bilirubin 0.8 mg/dL (0.2-1.3); Total Protein 7.2 g/dL (6.3-8.2)
[2020-03-17 16:32] LABS: Potassium 4.2 mmol/L (3.5-5.1)
[2020-03-17 16:35] LABS: Basophils # (A) 0.1 k/uL (0-0.2); Basophils % (A) 1 %; Eosinophils # (A) 0.1 k/uL (0-0.7); Eosinophils % (A) 3 %; HCT 37.4 % (39.0-53.0); HGB 13.2 gm/dL (13.0-17.5); Lymphocytes # (A) 0.8 k/uL (1.0-4.8); Lymphocytes % (A) 23 %; MCH 30.5 pg (25.0-35.0); MCHC 35.3 g/dL (31.0-37.0); MCV 86.5 fL (80.0-100.0); Mean Platelet Volume 9.1; Monocytes # (A) 0.3 k/uL (0-1.0); Monocytes % (A) 9 %; Neutrophils # (A) 2.1 k/uL (1.3-7.7); Neutrophils % (A) 62 %; Platelet Count 197 k/uL (150-450); RBC 4.32 m/uL (4.30-5.90); WBC 3.4 k/uL (3.8-10.6)
--- NOTE | 2020-03-17 16:51 | CT ---
EXAMINATION TYPE: CT brain wo con DATE OF EXAM: 03/17/2020 COMPARISON: 07/28/2014 HISTORY: Altered mental status. CT DLP: 1133.4 mGycm Automated exposure control for dose reduction was used. There is cerebral atrophy. There is no mass effect nor midline shift. There is no sign of intracrania l hemorrhage. The calvarium is intact. There is no evidence of cerebral edema. IMPRESSION: Moderate diffuse atrophy. No acute intracranial abnormality. No significant change.
--- NOTE | 2020-03-17 16:53 | XR ---
EXAMINATION TYPE: XR chest 2V DATE OF EXAM: 03/17/2020 COMPARISON: 09/30/2019 HISTORY: Chest pain TECHNIQUE: FINDINGS: There is no heart failure nor confluent pneumonic infiltrate. Costophrenic angles are clear . There are bilateral shoulder prostheses. There are no hilar masses. IMPRESSION: No active cardiopulmonary disease. Normal heart. No change.
[2020-03-17 16:55] LABS: Appearance,Urine Clear (Clear); Bilirubin,Urine Negative (Negative); Blood,Urine Negative (Negative); Color,Urine Yellow; Glucose,Urine (UA) Negative (Negative); Ketones,Urine Negative (Negative); Leukocyte Esterase,Urine Negative (Negative); Nitrite,Urine Negative (Negative); PH, Urine 5.5 (5.0-8.0); Protein,Urine Trace (Negative); Specific Gravity,Urine 1.013 (1.001-1.035); Urobilinogen,Urine <2.0 mg/dL (<2.0)
[2020-03-17 17:05] LABS: Amphetamine Screen,Urine Not Detected (NotDetected); Barbiturate Screen,Urine Not Detected (NotDetected); Benzodiazepines Screen,Urine Not Detected (NotDetected); Cocaine Screen,Urine Not Detected (NotDetected); Methadone Screen, Urine Not Detected (NotDetected); Opiate Screen,Urine Not Detected (NotDetected); Oxycodone Screen, Urine Not Detected (NotDetected); Phencyclidine Screen,Urine Not Detected (NotDetected); Tricyclic Antidepressant,Urine Not Detected (NotDetected); Urn Cannabinoid Scrn Not Detected (NotDetected)
[2020-03-17] MEDS ORDERED: NALOXONE 0.4 MG/ML 1 ML VIAL IV PRN (17:09)
[2020-03-17] MEDS ORDERED: ATORVASTATIN 20 MG TAB PO SCH (22:00)
[2020-03-17] MEDS: DONEPEZIL 10 MG TAB PO SCH (22:31)
[2020-03-17] MEDS: MELATONIN 3 MG TABLET PO SCH (22:31)
[2020-03-18 06:27] LABS: Basophils % (A) 1 %; Eosinophils # (A) 0.2 k/uL (0-0.7); Eosinophils % (A) 5 %; HGB 12.2 gm/dL (13.0-17.5); Lymphocytes # (A) 0.8 k/uL (1.0-4.8); Lymphocytes % (A) 26 %; MCH 30.1 pg (25.0-35.0); MCHC 34.8 g/dL (31.0-37.0); MCV 86.5 fL (80.0-100.0); Mean Platelet Volume 7.8; Monocytes # (A) 0.2 k/uL (0-1.0); Monocytes % (A) 7 %; Neutrophils # (A) 1.8 k/uL (1.3-7.7); Neutrophils % (A) 58 %; Platelet Count 187 k/uL (150-450); RBC 4.05 m/uL (4.30-5.90); WBC 3.1 k/uL (3.8-10.6)
[2020-03-18 09:11] LABS: African American GFR (CKD) 99.2 (60.0-200.0); Anion Gap 8.9 mmol/L (4.00-12.00); BUN/Creat Ratio 13.75 Ratio (12.00-20.00); Calcium 8.6 mg/dL (8.7-10.3); Carbon Dioxide 22.1 mmol/L (21.6-31.8); Non-African American GFR(CKD) 85.6 (60.0-200.0); Potassium 3.5 mmol/L (3.5-5.5)
--- NOTE | 2020-03-18 12:37 | P.CN ---
Psychiatric Consult - . Consult date: 03/18/20 Consult:: 03/18/20 12:24 IDENTIFYING DATA: This patient is a 79 yo male with a hx of alzheimers dementia who currently lives at mobile home with his and has 1 son. REASON FOR REFERRAL: Psychiatry was consulted for AMS HISTORY OF PRESENT ILLNESS: The patient presented to the hospital yesterday with his who states that patient has had sx for the past. Apparent patient has been "acting goofy" according to ER report. Patient apparently has a history of Alzheimer's dementia and is currently on Aricept. Patient was calling staff members in the ER "kangaroos". He had a computed tomography scan of his brain which showed moderate diffuse atrophy with no acute intracranial changes. Patient's nurse claims that patient was being inappropriate with staff downstairs however has been better since being admitted to the medical floors. Patient's UDS and UA were negative. Patient was seen at the bedside after finishing his lunch and appeared to be fairly uncooperative and argumentative with resume writer. He answered questions reluctantly and mainly stated "I don't know". He was alert and oriented 1 as he knew his own name however did not know that it was March 2020 and he believed that he was at [facility]. He claims that he knows that it is the "winter time". He denied any complaints and states that he is feeling okay. He denied any depression today. He has fairly poor insight. When asked why he was in the hospital he states "because of pains and my brought me in". He was noted to be confabulating and laughing at times it resume writer's questions and also called resume writer a "knot head". At this time patient denies any suicidal or homical ideations, intent or plan. Patient denies any auditory, visual hallucinations and denies any paranoia or delusions. Patients admits to using no recreational drugs or cigarettes Vice President Of Compliance spoke with patient's over the phone Kenyatta at [phone] who stated that patient has a history of dementia and has been fairly argumentative and aggressive with her and she has been increasing within the past month or so. She states that he has been neglecting his hygiene and care and she has to fight with him to get into the shower. She states that he has gotten lost in a store and also has gotten kicked out of [employer] for "chasing girls". She also states that he has been having poor sleep. PAST PSYCHIATRIC HISTORY: Patient has a a history of dementia. Lexapro Aricept and melatonin. Patient denies any previous psychiatric hospitalizations. Patient denies any psychiatric outpatient follow-up. Patient denies any history of suicide attempts in the past. PAST MEDICAL HISTORY: Hypertension, hyperlipidemia and Alzheimer's disease. ALLERGIES: as per EMR. CHEMICAL DEPENDENCY HISTORY: as per HPI. FAMILY PSYCHIATRIC/SUBSTANCE USE HISTORY: denies SOCIAL HISTORY: Patient was born and raised in [place] and claims that he completed up to seventh grade of school. He states that he worked several different jobs after school. He claims that he currently lives with his in a mobile home and has one son. He denies ever being in snf or nursing home. MENTAL STATUS EXAM: General Appearance: Patient appears to be overweight, stated age is alert, and uncooperative and argumentative. Patient appears to have poor hygiene and grooming wearing hospital gown with fair eye contact. Behavior: Patient is calmly lying in bed without any agitated behavior. Difficult to redirect. Speech: Patient's speech is fluent and nonpressured. [place] Mood/Affect: Patient reports their mood is "fine", affect is congruent Suicidality/Homicidality: Patient denies having any suicidal or homicidal ideation intent or plan. Perceptions: Patient denies any visual hallucinations and denies any auditory hallucinations Though content/process: [place], bizarre content. Irritable. Confabulates Memory and concentration: AOX1, fair attention span. Cannot spell "WORLD" backwards. Poor memory recall 0 out of 3 after 5 minutes. Poor judgment Judgment and insight: poor IMPRESSIONS: Alzheimer's dementia with behavioral disturbances PLAN: -At this time patient DOES NOT meet criteria for inpatient psychiatric admission. -Patient DOES NOT have decision making capacity at this time and is unable to reason through and communicate/appreciate the risks, benefits and alternatives to treatment. -Delirium precautions recommended with patient including - avoiding use of narcotics and BACK LINE COOK sedatives, limit anticholinergic medications when possible, frequent re-orientation, minimize use of restraints, open window shades during the day and close them at night -Would recommend the following medication changes/additions: Will start patient on Risperdal 0.25 mg twice a day for psychosis/aggressive behavior. Can continue with melatonin daily at bedtime for insomnia. Can continue with Aricept as prescribed. -Communicated plan to patient's nurse -Will continue to follow along -SW to look into possibility of correction placement -Please contact with any questions.
[2020-03-18] MEDS: risperiDONE 0.25 MG TAB PO SCH ×2 (15:50→20:24)
[2020-03-18] MEDS: MELATONIN 3 MG TABLET PO SCH (20:24)
[2020-03-18] MEDS: ATORVASTATIN 10 MG TAB PO SCH (20:24)
[2020-03-18] MEDS: DONEPEZIL 10 MG TAB PO SCH (20:24)
[2020-03-18] MEDS: MONTELUKAST 10 MG TAB PO SCH (20:24)
[2020-03-18] MEDS: hydrALAZINE HCL 50 MG TAB PO SCH (20:24)
[2020-03-18] MEDS ORDERED: DONEPEZIL 10 MG TAB PO SCH (21:00)
[2020-03-18] MEDS ORDERED: MELATONIN 3 MG TABLET PO SCH (21:00)
--- NOTE | 2020-03-18 23:18 | P.HPIM ---
History of Present Illness H&P Date: 03/18/20 Chief Complaint: Altered mentation/ behaviour Mr. Terry is a 79-year-old male, who follows with Dr. Foote as outpatient, with a past medical history of hypertension, hyperlipidemia admitted for altered mental status. Patient's mentions that patient had changes in his behavior for the past 6 months. His symptoms have been worsening along with aggressive behavior. His mentions that when he goes to the store he will randall girls and when she tries to calm him down, he gets angry at her. He is undergoing a working diagnosis of dementia. Patient is a poor historian. As per ED note, he was calling staff members as "Kangaroos". In the ER patient had a CAT scan of his brain showing diffuse moderate atrophy with no acute intracranial changes. Patient's UDS and UA were negative.Patient had blood work done showing white count of 3.1, hemoglobin 12.2, platelets 187. Sodium 138, potassium 3.5, chloride 105, bicarb 22. BUN 11, creatinine 0.8. Chest x-ray done showing no acute cardiopulmonary disease When I tried to have a conversation with the patient, he was laughing at times, does not give appropriate answers. Review of Systems Could not be as patient is confused , dose not answer my questions and laughs inappropriately. Past Medical History Past Medical History: Hyperlipidemia, Hypertension Additional Past Medical History / Comment(s): trauma from fall in 2004 History of Any Multi-Drug Resistant Organisms: None Reported Past Surgical History: Back Surgery, Joint Replacement, Orthopedic Surgery Additional Past Surgical History / Comment(s): orthopedic surgeries from trauma, neck Past Psychological History: Depression Smoking Status: Never smoker Past Alcohol Use History: None Reported Past Drug Use History: None Reported Medications and Allergies Home Medications Medication Instructions Recorded Confirmed Type Donepezil [Aricept] 10 mg PO HS 09/15/15 03/17/20 History Escitalopram [Lexapro] 20 mg PO DAILY 09/15/15 03/17/20 History Furosemide [Lasix] 20 mg PO DAILY 09/15/15 03/17/20 History Melatonin 3 mg PO HS 09/15/15 03/17/20 History Montelukast [Singulair] 10 mg PO HS 09/15/15 03/17/20 History Simvastatin [Zocor] 20 mg PO HS 09/15/15 03/17/20 History hydrALAZINE HCL [Apresoline] 50 mg PO BID 09/30/19 03/17/20 History tiZANidine HCL 4 mg PO Q6H 09/30/19 03/17/20 History Allergies Allergy/AdvReac Type Severity Reaction Status Date / Time No Known Allergies Allergy Verified 03/17/20 16:37 Physical Exam Vitals: Vital Signs Temp Pulse Pulse Resp BP BP Pulse Ox 03/18/20 07:00 97.8 F 64 17 182/99 95 03/18/20 03:08 98.3 F 94 18 162/90 94 L 03/18/20 00:00 61 18 03/17/20 23:15 97.4 F L 72 61 18 148/72 163/82 96 03/17/20 21:00 16 03/17/20 18:48 68 18 150/87 96 03/17/20 16:29 69 20 170/94 95 03/17/20 14:34 98.0 F 84 20 133/74 97 Intake and Output 03/17/20 03/18/20 03/18/20 22:59 06:59 14:59 Intake Total 300 Balance 300 Intake: Oral 300 Other: Voiding Method Toilet Toilet # Voids 1 Weight 115.666 kg PHYSICAL EXAMINATION: Patient is lying in the bed comfortably, no acute distress, awake alert and oriented. HEENT: Normocephalic. Neck is supple. Pupils reactive. Oral cavity is moist. Neck reveals no JVD, carotid bruits, or thyromegaly. CHEST EXAMINATION: Trachea is central. Symmetrical expansion. Lung navarrete clear to auscultation and percussion. CARDIAC: Normal S1, S2 with no gallops. No murmurs ABDOMEN: Soft. Bowel sounds normal. No organomegaly. No abdominal bruits. Extremities: reveal no edema. No clubbing or cyanosis Neurologically awake, alert, oriented to his name and place. Confused who the President is No focal deficits noted Skin: No rash or skin lesions. Musculoskeletal: No joint swelling or deformity. Normal range of motion. Results CBC & Chem 7: 03/18/20 06:14 03/18/20 06:14 Labs: Abnormal Lab Results - Last 24 Hours (Table) 03/17/20 03/17/20 03/17/20 Range/Units 15:46 15:46 15:46 WBC 3.4 L (3.8-10.6) k/uL RBC (4.30-5.90) m/uL Hgb (13.0-17.5) gm/dL Hct 37.4 L (39.0-53.0) % Lymphocytes # 0.8 L (1.0-4.8) k/uL Sodium 136 L (137-145) mmol/L Glucose 124 H (74-99) mg/dL Calcium (8.7-10.3) mg/dL Urine Protein Trace H (Negative) 03/18/20 03/18/20 Range/Units 06:14 06:14 WBC 3.1 L (3.8-10.6) k/uL RBC 4.05 L (4.30-5.90) m/uL Hgb 12.2 L (13.0-17.5) gm/dL Hct 35.0 L (39.0-53.0) % Lymphocytes # 0.8 L (1.0-4.8) k/uL Sodium (137-145) mmol/L Glucose (74-99) mg/dL Calcium 8.6 L (8.7-10.3) mg/dL Urine Protein (Negative) Assessment and Plan Assessment: ASSESSMENT Aggressive behavior Confusion -? Dementia Hypertension Hyperlipidemia Multiple joint osteoarthritis History of depression PLAN: Patient was admitted for concerns of aggressive behavior along with dementia, unable to be taking care of by his at home. Will check CMP, TSH, B12, RPR - as part of dementia work up. Psychiatry has evaluated the patient and made changes in his medication. Patient does not have decision-making capacity. We will try to avoid any sedatives or narcotics and anticholinergics. motion picture set up worker for possible placement in a long-term facility. Continue with the current medication regimen. Other recommendations depending on the progress of the patient.
[2020-03-19 06:52] LABS: Basophils # (A) 0.1 k/uL (0-0.2); Basophils % (A) 2 %; Eosinophils # (A) 0.1 k/uL (0-0.7); Eosinophils % (A) 4 %; HCT 36.8 % (39.0-53.0); Lymphocytes # (A) 0.7 k/uL (1.0-4.8); Lymphocytes % (A) 24 %; MCH 28.9 pg (25.0-35.0); MCHC 32.7 g/dL (31.0-37.0); MCV 88.3 fL (80.0-100.0); Mean Platelet Volume 7.6; Monocytes # (A) 0.2 k/uL (0-1.0); Monocytes % (A) 8 %; Neutrophils # (A) 1.8 k/uL (1.3-7.7); Neutrophils % (A) 62 %; Platelet Count 211 k/uL (150-450); RBC 4.17 m/uL (4.30-5.90); RDW 14.3 % (11.5-15.5); WBC 2.8 k/uL (3.8-10.6)
[2020-03-19] MEDS: hydrALAZINE HCL 50 MG TAB PO SCH ×2 (07:33→20:03)
[2020-03-19] MEDS: risperiDONE 0.25 MG TAB PO SCH (07:33)
[2020-03-19 09:57] LABS: African American GFR (CKD) 99.2 (60.0-200.0); Albumin 3.6 g/dL (3.80-4.90); Albumin/Globulin Ratio 1.8 (1.60-3.17); Anion Gap 7.6 mmol/L (4.00-12.00); BUN/Creat Ratio 12.5 Ratio (12.00-20.00); Calcium 8.6 mg/dL (8.7-10.3); Carbon Dioxide 24.4 mmol/L (21.6-31.8); Non-African American GFR(CKD) 85.6 (60.0-200.0); Potassium 3.5 mmol/L (3.5-5.5); Total Bilirubin 0.5 mg/dL (0.3-1.2); Total Protein 5.6 g/dL (6.2-8.2)
[2020-03-19] MEDS ORDERED: OLANZapine 10 MG VIAL IM PRN (13:49)
--- NOTE | 2020-03-19 17:57 | PN ---
PROGRESS NOTE SUBJECTIVE: The patient was seen today for psychiatric followup regarding the patient's dementia with behavioral disturbance. Nurse taking care of the patient states that the patient was becoming aggressive this afternoon and demanding to be discharged and security needs to be called and patient was placed on a one-to-one sitter. At that time physician underwriter advised and ordered Zyprexa IM 2.5 mg t.i.d. p.r.n. for agitation if needed. The patient was seen at the bedside and agreeable to speak to physician underwriter. The patient continues to display poor insight and judgment. He continues to also display irritability with physician underwriter, however, was attempting to be more cooperative today. The patient was not endorsing any delusions and had mild paranoia toward the staff. He states that he has been taking his medications, but still does not believe that he needs medications. He did not mention any visual or auditory hallucinations today and denied any suicidal or homicidal ideations, intent, or plan. He states that his mood is "fine" and his affect is constricted. He claims that he was able to sleep mainly throughout the night and has been eating his meals. Patient continues to demonstrate mild lability in his mood. MENTAL STATUS EXAM: The patient appears to be overweight, elderly, however, does appear to be stated age. He was in street clothing and sitting at the side of his bed. He appeared to be mildly more directable today, however, continued to be irritable. The patient was not displaying any agitation with physician underwriter today. His speech was fluent, however, was concrete. He denied any suicide or homicide ideations intent or plan and denies any auditory or visual hallucinations. He was alert and oriented x2 today however he did not know what day of the month it was but did know it was March 2020. He had improvement in his attention span. Continues to have poor memory. The patient's thought process and thought content were improved mildly from yesterday, continues to be focused on discharge and is concrete. Insight and judgment are chronically limited. ASSESSMENT AND PLAN: Continue with current assessment and diagnosis. The patient continues to not meet criteria for inpatient psychiatric admission. We will increase patient's Risperdal to 0.5 mg b.i.d. for psychosis/mood stabilization and also will be adding Depakote ER 250 mg q.h.s. for mood stabilization/irritability. Added today Zyprexa IM 2.5 mg t.i.d. for agitation and/or psychosis. Patient, B12 and TSH levels were within normal limits. At this time, patient does not have decision-making capacity and cannot sign himself AMA. Continue with one-to-one sitter for safety and orientation. Psychiatry will continue to follow along for further recommendations tomorrow. Please call with any questions. MMODL / IJN: [id number] /
[2020-03-19] MEDS: MONTELUKAST 10 MG TAB PO SCH (20:02)
[2020-03-19] MEDS: DONEPEZIL 10 MG TAB PO SCH (20:03)
[2020-03-19] MEDS: risperiDONE 0.5 MG TAB PO SCH (20:03)
[2020-03-19] MEDS: MELATONIN 3 MG TABLET PO SCH (20:03)
[2020-03-19] MEDS: DIVALPROEX ER 250 MG TAB.ER.24H PO SCH (20:03)
[2020-03-19] MEDS: ATORVASTATIN 10 MG TAB PO SCH (20:03)
--- NOTE | 2020-03-20 01:27 | P.PN ---
Subjective Progress Note Date: 03/19/20 Principal diagnosis: Aggressive behaviour Mr. Terry is a 79-year-old male, who follows with Dr. Foote as outpatient, with a past medical history of hypertension, hyperlipidemia admitted for altered mental status. Patient's mentions that patient had changes in his behavior for the past 6 months. His symptoms have been worsening along with aggressive behavior. His mentions that when he goes to the store he will randall girls and when she tries to calm him down, he gets angry at her. He is undergoing a working diagnosis of dementia. Patient is a poor historian. As per ED note, he was calling staff members as "Kangaroos". In the ER patient had a CAT scan of his brain showing diffuse moderate atrophy with no acute intracranial changes. Patient's UDS and UA were negative.Patient had blood work done showing white count of 3.1, hemoglobin 12.2, platelets 187. Sodium 138, potassium 3.5, chloride 105, bicarb 22. BUN 11, creatinine 0.8. Chest x-ray done showing no acute cardiopulmonary disease. On 03/19/2020 -patient was seen and examined. Sitter at bedside. He was dressed up and states that he wants to go home. The patient seems to have poor insight and judgment. He understands that he is in the hospital and wants to go home. On discussing the need for him to stay in the hospital, patient got aggressive. He called me "dummy" and that he does not have to listen to me. Patient's vitals have been stable and blood work from yesterday within normal limits. Active Medications Atorvastatin Calcium (Atorvastatin 10 Mg Tab) 10 mg PO [facility] Last Admin: 03/19/20 20:03 Dose: 10 mg Documented by: Divalproex Sodium (Divalproex Er 250 Mg Tab.Er.24h) 250 mg PO [facility] Last Admin: 03/19/20 20:03 Dose: 250 mg Documented by: Donepezil HCl (Donepezil 10 Mg Tab) 10 mg PO [facility] Last Admin: 03/19/20 20:03 Dose: 10 mg Documented by: Hydralazine HCl (Hydralazine Hcl 50 Mg Tab) 50 mg PO BID [facility] Last Admin: 03/19/20 20:03 Dose: 50 mg Documented by: Melatonin (Melatonin 3 Mg Tablet) 3 mg PO [facility] Last Admin: 03/19/20 20:03 Dose: 3 mg Documented by: Montelukast Sodium (Montelukast 10 Mg Tab) 10 mg PO HS [facility] Last Admin: 03/19/20 20:02 Dose: 10 mg Documented by: Naloxone HCl (Naloxone 0.4 Mg/Ml 1 Ml Vial) 0.2 mg IV Q2M PRN PRN Reason: Opioid Reversal Olanzapine (Olanzapine 10 Mg Vial) 2.5 mg IM TID PRN PRN Reason: Agitation or Acute Psychosis Last Admin: 03/19/20 16:24 Dose: 2.5 mg Documented by: Risperidone (Risperidone 0.5 Mg Tab) 0.5 mg PO BID [facility] Last Admin: 03/19/20 20:03 Dose: 0.5 mg Documented by: Objective - Vital Signs Vital signs: Vital Signs Temp 98.0 F 03/19/20 14:00 Pulse 67 03/19/20 14:00 Resp 18 03/19/20 14:00 BP 137/77 03/19/20 14:00 Pulse Ox 96 03/19/20 14:00 Intake & Output 03/18/20 03/19/20 03/19/20 18:59 06:59 18:59 Intake Total 1200 Balance 1200 Intake: Oral 1200 Other: Voiding Method Toilet Urinal Urinal Diaper # Voids 3 1 - Exam PHYSICAL EXAMINATION: Patient is lying in the bed comfortably, no acute distress, awake alert and oriented. HEENT: Normocephalic. Neck is supple. Pupils reactive. Oral cavity is moist. CHEST EXAMINATION:Lung navarrete clear to auscultation and percussion. CARDIAC: Normal S1, S2 with no gallops. No murmurs ABDOMEN: Soft. Bowel sounds normal. No organomegaly. Extremities: reveal no edema. No clubbing or cyanosis Neurologically awake, alert, oriented to his name and place. Confused who the President is No focal deficits noted - Labs CBC & Chem 7: 03/19/20 06:06 03/19/20 06:06 Labs: Abnormal Lab Results - Last 24 Hours (Table) 03/19/20 03/19/20 Range/Units 06: 06:06 WBC 2.8 L (3.8-10.6) k/uL RBC 4.17 L (4.30-5.90) m/uL Hgb 12.0 L (13.0-17.5) gm/dL Hct 36.8 L (39.0-53.0) % Lymphocytes # 0.7 L (1.0-4.8) k/uL Calcium 8.6 L (8.7-10.3) mg/dL Total Protein 5.6 L (6.2-8.2) g/dL Albumin 3.60 L (3.80-4.90) g/dL Assessment and Plan Assessment: ASSESSMENT Aggressive behavior Confusion -? Dementia Hypertension Hyperlipidemia Multiple joint osteoarthritis History of depression PLAN: Patient was admitted for concerns of aggressive behavior along with dementia, unable to be taking care of by his at home. CMP, TSH, B12 - as part of dementia work up - WNL. Few labs still pending. Psychiatry has evaluated the patient and made changes in his medication. Patient does not have decision-making capacity. We will try to avoid any sedatives or narcotics and anticholinergics. property worker for possible placement in a long-term facility. Continue with the current medication regimen. Other recommendations depending on the progress of the patient.
[2020-03-20] MEDS ORDERED: ACETAMINOPHEN TAB 325 MG TAB PO PRN (07:15)
--- NOTE | 2020-03-20 08:04 | P.PN ---
Subjective Progress Note Date: 03/20/20 Principal diagnosis: Worsening dementia The patient was essentially admitted for altered mental status. At home, he's becoming unruly and difficult to take care of given his cognitive skill. No significant new changes. No elements of aggressive behavior since yesterday. No fever or chills. Objective - Vital Signs Vital signs: Vital Signs Temp 98.4 F 03/20/20 02:17 Pulse 91 03/20/20 02:17 Resp 16 03/20/20 02:17 BP 142/81 03/20/20 02:17 Pulse Ox 95 03/20/20 02:17 Intake & Output 03/19/20 03/20/20 03/20/20 18:59 06:59 18:59 Intake Total 1800 Balance 1800 Intake: Oral 1800 Other: Voiding Method Urinal Urinal Diaper Diaper # Voids 2 3 - Constitutional General appearance: Present: obese - EENT Eyes: Absent: abnormal pupil - Neck Neck: Absent: lymphadenopathy - Respiratory Respiratory: bilateral: diminished - Cardiovascular Rhythm: regular Heart sounds: normal: S1, S2 Abnormal Heart Sounds: Absent: S3 Gallop, S4 Gallop - Gastrointestinal General gastrointestinal: Present: soft. Absent: tenderness - Integumentary Integumentary: Absent: cellulitis - Neurologic Neurologic Comment(s): The patient does note current and past history as far as presidents. But does not fully know the date. - Labs CBC & Chem 7: 03/19/20 06:06 03/19/20 06:06 Labs: Abnormal Lab Results - Last 24 Hours (Table) 03/19/20 Range/Units 06:06 Calcium 8.6 L (8.7-10.3) mg/dL Total Protein 5.6 L (6.2-8.2) g/dL Albumin 3.60 L (3.80-4.90) g/dL Assessment and Plan (1) Aggressive behavior Current Visit: Yes Status: Acute Code(s): R46.89 - OTHER SYMPTOMS AND SIGNS INVOLVING APPEARANCE AND BEHAVIOR SNOMED Code(s): 96404005 (2) Alzheimer's dementia Current Visit: Yes Status: Acute Code(s): G30.9 - ALZHEIMER'S DISEASE, UNSPECIFIED; F02.80 - DEMENTIA IN OTH DISEASES CLASSD ELSWHR W/O BEHAVRL DISTURB SNOMED Code(s): 78252893 (3) DJD (degenerative joint disease) Current Visit: No Status: Acute Code(s): M19.90 - UNSPECIFIED OSTEOARTHRITI S, UNSPECIFIED SITE SNOMED Code(s): 933765464 (4) Hyperlipidemia Current Visit: No Status: Acute Code(s): E78.5 - HYPERLIPIDEMIA, UNSPECIFIED SNOMED Code(s): 58518480 (5) Hypertension Current Visit: No Status: Acute Code(s): I10 - ESSENTIAL (PRIMARY) H YPERTENSION SNOMED Code(s): 70315211 Plan: Essentially awaiting placement. Continue home medications. Prognosis is guarded secondary to his dementia.
[2020-03-20] MEDS: hydrALAZINE HCL 50 MG TAB PO SCH ×2 (08:15→20:01)
[2020-03-20] MEDS: risperiDONE 0.5 MG TAB PO SCH ×2 (08:15→20:01)
--- NOTE | 2020-03-20 11:52 | P.PN ---
Progress Note - Text Progress Note Date: 03/20/20 Interval history: Patient was seen today for psychiatric follow-up regarding patient's dementia with behavioral disturbance. Patient's nurse states that patient has been cooperative since yesterday and slept throughout the night. Patient has also been taking his medications and has a sitter at the bedside today. Patient was seen by writer editor sleeping and was awoken however appeared to be somewhat tired. Patient appeared to have improvement in his irritability and was more cooperative today with writer editor. He denies any overnight complaints and states that he slept well throughout the night. He claims that he is taking his medications. He states that he has been eating his meals regularly. He claims that his mood is "fine". He also states that he spoke with his earlier who states that "she wants me to do better". He continues to be concrete and have limited insight into his condition and his need for hospitalization. At this time patient denies any suicidal or homicidal ideations intent or plan. Denies any Auditory or visual hallucinations. Patient did receive an IM of Zyprexa 2.5 mg yesterday for agitation. Mental status exam: General Appearance: Patient appears to be overweight, elderly, stated age is directable, and attempts to be cooperative. Fair hygiene and grooming. Behavior: No agitated behavior. Patient is calm and directable. More cooperative today with writer editor. Speech: Patient's speech is fluent and nonpressured. [place] Mood/Affect: Mood is improving, affect is congruent and constricted. Suicidality/Homicidality: Patient denies having any suicidal or homicidal ideation intent or plan. Perceptions: Patient denies any auditory or visual hallucinations. Though content/process: [place], poverty of content. No delusions or paranoia endorsed. Memory and concentration: AOX2, does not know today's date, attention span improved. Judgment and insight: Chronically limited Assessment/Plan: Continue with current diagnosis. The patient continues to not meet criteria for inpatient psychiatric hospitalization. Continue with Risperdal 0.5 mg twice a day for psychosis/mood stabilization. Continue with Depakote ER 250 mg daily at bedtime for mood stabilization/irritability. Continue with Zyprexa IM 2.5 mg 3 times a day when necessary for agitation and/or psychosis. Patient continues to not have decision-making capacity and cannot signed himself AMA. May continue with one-to-one sitter at the bedside however this can be discontinued later on this afternoon the patient is not having any behavioral issues and nursing staff feels comfortable discontinuing it. distribution center manager continuing to look into placement options as claims that she cannot care for him at home. Psychiatry will sign off at this time, please contact or call for any questions.
[2020-03-20] MEDS: DONEPEZIL 10 MG TAB PO SCH (20:01)
[2020-03-20] MEDS: MELATONIN 3 MG TABLET PO SCH (20:01)
[2020-03-20] MEDS: DIVALPROEX ER 250 MG TAB.ER.24H PO SCH (20:01)
[2020-03-20] MEDS: ATORVASTATIN 10 MG TAB PO SCH (20:01)
[2020-03-20] MEDS: MONTELUKAST 10 MG TAB PO SCH (20:01)
[2020-03-21] MEDS: hydrALAZINE HCL 50 MG TAB PO SCH ×2 (07:23→20:11)
[2020-03-21] MEDS: risperiDONE 0.5 MG TAB PO SCH ×2 (07:23→20:11)
[2020-03-21] MEDS ORDERED: LORazepam 0.5 MG TAB PO PRN (15:13)
[2020-03-21] MEDS: DIVALPROEX ER 250 MG TAB.ER.24H PO SCH (20:11)
[2020-03-21] MEDS: DONEPEZIL 10 MG TAB PO SCH (20:11)
[2020-03-21] MEDS: MONTELUKAST 10 MG TAB PO SCH (20:11)
[2020-03-21] MEDS: MELATONIN 3 MG TABLET PO SCH (20:11)
[2020-03-21] MEDS: ATORVASTATIN 10 MG TAB PO SCH (20:11)
[2020-03-22 08:06] VITALS: BP 154/89; PULSE 75; RESP 18; TEMP 97.6
--- NOTE | 2020-03-22 08:18 | P.PN ---
Subjective Principal diagnosis: Worsening dementia The patient was essentially admitted for altered mental status. At home, he's becoming unruly and difficult to take care of given his cognitive skill. No significant new changes. No elements of aggressive behavior since yesterday. No fever or chills. Objective - Vital Signs Vital signs: Vital Signs Temp 97.6 F 03/22/20 08:00 Pulse 75 03/22/20 08:00 Resp 18 03/22/20 08:00 BP 154/89 03/22/20 08:00 Pulse Ox 94 L 03/22/20 08:00 Intake & Output 03/21/20 03/22/20 03/22/20 18:59 06:59 18:59 Intake Total 300 Balance 300 Intake: Oral 300 Other: Voiding Method Urinal Diaper # Voids 3 1 - Constitutional General appearance: Present: obese - EENT Eyes: Absent: abnormal pupil - Neck Neck: Absent: lymphadenopathy - Respiratory Respiratory: bilateral: diminished - Cardiovascular Rhythm: regular Heart sounds: normal: S1, S2 Abnormal Heart Sounds: Absent: S3 Gallop - Gastrointestinal General gastrointestinal: Present: soft. Absent: tenderness - Integumentary Integumentary: Absent: cellulitis - Labs CBC & Chem 7: 03/19/20 06:06 03/19/20 06:06 Assessment and Plan (1) Aggressive behavior Current Visit: Yes Status: Acute Code(s): R46.89 - OTHER SYMPTOMS AND SIGNS INVOLVING APPEARANCE AND BEHAVIOR SNOMED Code(s): 60445022 (2) Alzheimer's dementia Current Visit: Yes Status: Acute Code(s): G30.9 - ALZHEIMER'S DISEASE, UNSPECIFIED; F02.80 - DEMENTIA IN OTH DISEASES CLASSD ELSWHR W/O BEHAVRL DISTURB SNOMED Code(s): 42069540 (3) DJD (degenerative joint disease) Current Visit: No Status: Acute Code(s): M19.90 - UNSPECIFIED OST EOARTHRITIS, UNSPECIFIED SITE SNOMED Code(s): 485319467 (4) Hyperlipidemia Current Visit: No Status: Acute Code(s): E78.5 - HYPERLIPIDEMIA, UNSPECIFIED SNOMED Code(s): 95590238 (5) Hypertension Current Visit: No Status: Acute Code(s): I10 - ESSENTIAL (PRIMARY) HYPERTENSION SNOMED Code(s): 39149400 Plan: Essentially awaiting placement. Continue home medications. Prognosis is guarded secondary to his dementia. The family has been struggling to take care of him due to his labile emotions a nd aggressive behavior.
--- NOTE | 2020-03-22 08:19 | P.PN ---
Subjective Principal diagnosis: Worsening dementia The patient was essentially admitted for altered mental status. At home, he's becoming unruly and difficult to take care of given his cognitive skill. No significant new changes. No elements of aggressive behavior since yesterday. No fever or chills. Objective - Vital Signs Vital signs: Vital Signs Temp 97.6 F 03/22/20 08:00 Pulse 75 03/22/20 08:00 Resp 18 03/22/20 08:00 BP 154/89 03/22/20 08:00 Pulse Ox 94 L 03/22/20 08:00 Intake & Output 03/21/20 03/22/20 03/22/20 18:59 06:59 18:59 Intake Total 300 Balance 300 Intake: Oral 300 Other: Voiding Method Urinal Diaper # Voids 3 1 - Constitutional General appearance: Present: obese - Neck Neck: Absent: lymphadenopathy - Respiratory Respiratory: bilateral: diminished - Cardiovascular Rhythm: regular Heart sounds: normal: S1, S2 Abnormal Heart Sounds: Absent: S3 Gallop - Gastrointestinal General gastrointestinal: Present: soft. Absent: tenderness - Neurologic Neurologic Comment(s): Poor long-term memory is otherwise noted. Neurologic: Present: CNII-XII intact - Labs CBC & Chem 7: 03/19/20 06:06 03/19/20 06:06 Assessment and Plan (1) Aggressive behavior Current Visit: Yes Status: Acute Code(s): R46.89 - OTHER SYMPTOMS AND SIGNS INVOLVING APPEARANCE AND BEHAVIOR SNOMED Code(s): 68010579 (2) Alzheimer's dementia Current Visit: Yes Status: Acute Code(s): G30.9 - ALZHEIMER'S DISEASE, UNSPECIFIED; F02.80 - DEMENTIA IN OTH DISEASES CLASSD ELSWHR W/O BEHAVRL DISTURB SNOMED Code(s): 90411988 (3) DJD (degenerative joint disease) Current Visit: No Status: Acute Code(s): M19.90 - UNSPECIFIED OSTEOARTHRITIS, UNSPECIFIED SITE SNOMED Code(s): 532449403 (4) Hyperlipidemia Current Visit: No Status: Acute Code(s): E78.5 - HYPERLIPIDEMIA, UNSPECIFIED SNOMED Code(s): 83314335 (5) Hypertension Current Visit: No Status: Acute Code(s): I10 - ESSENTIAL (PRIMARY) HYPERTENSION SNOMED Code(s): 76025217 Plan: Essentially awaiting placement. Continue home medications. Prognosis is guarded secondary to his dementia. The family has been struggling to take care of him due to his labile emotions and aggressive behavior. Time with Patient: Greater than 30
[2020-03-22] MEDS: risperiDONE 0.5 MG TAB PO SCH (09:05)
[2020-03-22] MEDS: hydrALAZINE HCL 50 MG TAB PO SCH (09:05)
== END 2020-03-22 13:03 | disposition home or self-care (01) | DRG 57 ==
LOC: EC 14:33 → 5NMEDONC 17:09 → 4SSUR 22:59
PROVIDERS: ADMIT Family Medicine; ATTEND Family Medicine
DX: G30.9 Alzheimer's disease, unspecified (principal); F02.81 Dementia in other diseases classified elsewhere, unspecified severity, with behavioral disturbance; M19.90 Unspecified osteoarthritis, unspecified site; I10 Essential (primary) hypertension; F32.9 Major depressive disorder, single episode, unspecified; E78.5 Hyperlipidemia, unspecified; E66.9 Obesity, unspecified; Z79.899 Other long term (current) drug therapy; Z91.81 History of falling; Z98.890 Other specified postprocedural states; Z68.36 Body mass index [BMI] 36.0-36.9, adult
CPT/HCPCS: 36415; 70450; 71046; 80048; 80053; 80306; 80320; 80329; 81003; 82607; 83520; 84443; 84484; 85025; 86780; 99285

== ENCOUNTER 2020-10-27 11:34 | Inpatient (IN) | payer MEDICARE ==
--- NOTE | 2020-10-27 12:02 | ED ---
General Adult HPI - General Chief complaint: Shortness of Breath Stated complaint: Weakness Time Seen by Provider: 10/27/20 11:49 Source: patient, EMS, RN notes reviewed, old records reviewed Mode of arrival: EMS Limitations: altered mental status - History of Present Illness Initial comments: 80-year-old male with generalized weakness, dyspnea. History limited, patient does have history of dementia, history is probably from the was at bedside. Patient denies chest pain. There is been no reported fever. No vomiting. Patient has had a poor appetite. They were going to see a primary care physician today but due to the increased weakness presents to the emergency department. Patient is tachypneic at the time my evaluation. - Related Data Home Medications Medication Instructions Recorded Confirmed Escitalopram [Lexapro] 20 mg PO DAILY 09/15/15 03/17/20 Furosemide [Lasix] 20 mg PO DAILY 09/15/15 03/17/20 Montelukast [Singulair] 10 mg PO HS 09/15/15 03/17/20 Simvastatin [Zocor] 20 mg PO HS 09/15/15 03/17/20 hydrALAZINE HCL [Apresoline] 50 mg PO BID 09/30/19 03/17/20 Megestrol [Megace] 400 mg PO HS 10/27/20 10/27/20 Allergies Allergy/AdvReac Type Severity Reaction Status Date / Time No Known Allergies Allergy Verified 10/27/20 13:26 Review of Systems ROS Statement: Those systems with pertinent positive or pertinent negative responses have been documented in the HPI. ROS Other: All systems not noted in ROS Statement are negative. Past Medical History Past Medical History: Dementia, Hyperlipidemia, Hypertension Additional Past Medical History / Comment(s): trauma from fall in 2004 History of Any Multi-Drug Resistant Organisms: None Reported Past Surgical History: Back Surgery, Joint Replacement, Orthopedic Surgery Additional Past Surgical History / Comment(s): orthopedic surgeries from trauma, neck Past Psychological History: Depression Smoking Status: Never smoker Past Alcohol Use History: None Reported Past Drug Use History: None Reported General Exam Limitations: altered mental status General appearance: lethargic, in distress Head exam: Present: atraumatic, normocephalic Eye exam: Present: normal appearance, PERRL ENT exam: Present: mucous membranes dry Neck exam: Present: normal inspection. Absent: tenderness, meningismus Respiratory exam: Present: respiratory distress, rales, decreased breath sounds Cardiovascular Exam: Present: normal rhythm, tachycardia GI/Abdominal exam: Present: soft. Absent: distended, tenderness Extremities exam: Present: normal inspection, normal capillary refill. Absent: pedal edema Neurological exam: Present: alert Skin exam: Present: warm, dry, intact. Absent: cyanosis, diaphoretic Course Vital Signs 10/27/20 10/27/20 11:43 11:50 Temperature 98.3 F Pulse Rate 101 H Respiratory 30 H 30 H Rate Blood Pressure 105/55 O2 Sat by Pulse 80 L Oximetry EKG Findings - EKG Comments: EKG Findings:: EKG: Sinus tachycardia, ST segment depression in the lateral precordial leads, T-wave inversion in the inferior leads, no ST segment elevation. Rate of 104, IL interval 160, QRS duration 96, QTC 499, no ischemic changes are new compared to EKG in September 2019. Medical Decision Making - Medical Decision Making 80-year-old male presents for evaluation of increased generalized weakness and dyspnea. Initial blood pressure stable. Patient does have a nonischemic- appearing EKG. No reported chest pain today or in the past one week. He does have a history of dementia. Chest x-ray showing relatively clear lung navarrete with no focal pneumonia. He has a normal CBC, stable hemoglobin, no leukocytosis. Patient's has significant lab abnormalities including a profound lactic acidosis 8.3, he has an elevated BUN/creatinine consistent with acute renal failure. He has an elevated troponin and an elevated BNP. I discussed the significance of this patient's illness with his was at bedside and she indicates that the patient would not want aggressive resuscitative measures including no CPR, no intubation. He is made a no code while in the emergency department. is agreeable with IV hydration and heparin for a non-ST segment elevated [place]. I do have concerns that this patient will be entering into a worsening heart failure as he does have rails on initial examination however felt to require increased hydration in the acute renal failure, hypotension, and lactic acidosis. At this time IV fluids and IV heparin alone without additional aggressive measures. Case discussed with Dr. Foote who will admit. - Lab Data Result diagrams: 10/27/20 11:59 10/27/20 11:59 Lab Results 10/27/20 10/27/20 10/27/20 Range/Units 11:59 11:59 11:59 WBC 8.7 (3.8-10.6) k/uL RBC 4.75 (4.30-5.90) m/uL Hgb 14.5 (13.0-17.5) gm/dL Hct 42.3 (39.0-53.0) % MCV 89.0 (80.0-100.0) fL MCH 30.6 (25.0-35.0) pg MCHC 34.4 (31.0-37.0) g/dL RDW 16.9 H (11.5-15.5) % Plt Count 207 (150-450) k/uL MPV 8.2 Neutrophils % 86 % Lymphocytes % 11 % Monocytes % 2 % Eosinophils % 0 % Basophils % 0 % Neutrophils # 7.5 (1.3-7.7) k/uL Lymphocytes # 1.0 (1.0-4.8) k/uL Monocytes # 0.2 (0-1.0) k/uL Eosinophils # 0.0 (0-0.7) k/uL Basophils # 0.0 (0-0.2) k/uL Anisocytosis Slight PT 16.1 H (9.0-12.0) sec INR 1.6 H (<1.2) APTT 26.4 (22.0-30.0) sec Sodium 139 (137-145) mmol/L Potassium 3.4 L (3.5-5.1) mmol/L Chloride 102 (98-107) mmol/L Carbon Dioxide 12 L (22-30) mmol/L Anion Gap 25 mmol/L BUN 75 H (9-20) mg/dL Creatinine 4.70 H (0.66-1.25) mg/dL Est GFR (CKD-EPI)AfAm 13 (>60 ml/min/1.73 sqM) Est GFR (CKD-EPI)NonAf 11 (>60 ml/min/1.73 sqM) Glucose 192 H (74-99) mg/dL Plasma Lactic Acid Henry (0.7-2.0) mmol/L Calcium 9.6 (8.4-10.2) mg/dL Total Bilirubin 1.3 (0.2-1.3) mg/dL AST 70 H (17-59) U/L ALT 38 (4-49) U/L Alkaline Phosphatase 117 (38-126) U/L Troponin I (0.000-0.034) ng/mL NT-Pro-B Natriuret Pep pg/mL Total Protein 7.2 (6.3-8.2) g/dL Albumin 3.8 (3.5-5.0) g/dL 10/27/20 10/27/20 10/27/20 Range/Units 11:59 11:59 11:59 WBC (3.8-10.6) k/uL RBC (4.30-5.90) m/uL Hgb (13.0-17.5) gm/dL Hct (39.0-53.0) % MCV (80.0-100.0) fL MCH (25.0-35.0) pg MCHC (31.0-37.0) g/dL RDW (11.5-15.5) % Plt Count (150-450) k/uL MPV Neutrophils % % Lymphocytes % % Monocytes % % Eosinophils % % Basophils % % Neutrophils # (1.3-7.7) k/uL Lymphocytes # (1.0-4.8) k/uL Monocytes # (0-1.0) k/uL Eosinophils # (0-0.7) k/uL Basophils # (0-0.2) k/uL Anisocytosis PT (9.0-12.0) sec INR (<1.2) APTT (22.0-30.0) sec Sodium (137-145) mmol/L Potassium (3.5-5.1) mmol/L Chloride (98-107) mmol/L Carbon Dioxide (22-30) mmol/L Anion Gap mmol/L BUN (9-20) mg/dL Creatinine (0.66-1.25) mg/dL Est GFR (CKD-EPI)AfAm (>60 ml/min/1.73 sqM) Est GFR (CKD-EPI)NonAf (>60 ml/min/1.73 sqM) Glucose (74-99) mg/dL Plasma Lactic Acid Henry 8.3 H* (0.7-2.0) mmol/L Calcium (8.4-10.2) mg/dL Total Bilirubin (0.2-1.3) mg/dL AST (17-59) U/L ALT (4-49) U/L Alkaline Phosphatase (38-126) U/L Troponin I 0.135 H* (0.000-0.034) ng/mL NT-Pro-B Natriuret Pep 7420 pg/mL Total Protein (6.3-8.2) g/dL Albumin (3.5-5.0) g/dL Critical Care Time Critical Care Time: Yes Total Critical Care Time: 35 Disposition Clinical Impression: CHF (congestive heart failure), NSTEMI (non-ST elevated myocardial infarction), Lactic acid acidosis, ARF (acute renal failure) Disposition: ADMITTED IP TO THIS [facility] Condition: Serious Is patient prescribed a controlled substance at d/c from ED?: No Referrals: Uriel Foote MD [Primary Care Provider] - 1-2 days Decision to Admit Reason: Admit from EC Decision Date: 10/27/20 Decision Time: 13:39
[2020-10-27 12:34] LABS: Anisocytosis Slight; Basophils % (A) 0 %; Eosinophils % (A) 0 %; HCT 42.3 % (39.0-53.0); HGB 14.5 gm/dL (13.0-17.5); Lymphocytes % (A) 11 %; MCH 30.6 pg (25.0-35.0); MCHC 34.4 g/dL (31.0-37.0); Mean Platelet Volume 8.2; Monocytes # (A) 0.2 k/uL (0-1.0); Monocytes % (A) 2 %; Neutrophils # (A) 7.5 k/uL (1.3-7.7); Neutrophils % (A) 86 %; Platelet Count 207 k/uL (150-450); RBC 4.75 m/uL (4.30-5.90); RDW 16.9 % (11.5-15.5); WBC 8.7 k/uL (3.8-10.6)
[2020-10-27 12:45] LABS: INR 1.6 (<1.2); Partial Thromboplastin Time 26.4 sec (22.0-30.0); Prothrombin Time 16.1 sec (9.0-12.0)
[2020-10-27 12:54] LABS: Albumin 3.8 g/dL (3.5-5.0); Calcium 9.6 mg/dL (8.4-10.2); Potassium 3.4 mmol/L (3.5-5.1); Total Bilirubin 1.3 mg/dL (0.2-1.3); Total Protein 7.2 g/dL (6.3-8.2)
--- NOTE | 2020-10-27 12:57 | XR ---
EXAMINATION TYPE: XR chest 2V DATE OF EXAM: 10/27/2020 COMPARISON: 03/17/2020 HISTORY: Dyspnea TECHNIQUE: Frontal and lateral views of the chest are obtained. FINDINGS: There is elevation of the left hemidiaphragm which is new since the prior exam. Cardiac silhouette is unremarkable. Bilateral shoulder hardware is incompletely included. IMPRESSION: Elevation of the left hemidiaphragm.
[2020-10-27] MEDS ORDERED: SODIUM CHLORIDE 0.9% 500 ML 500 ML IV ONE (13:05)
[2020-10-27] MEDS ORDERED: SODIUM CHLORIDE 0.9% 1,000 ML IV ONE (13:05)
[2020-10-27] MEDS ORDERED: HEPARIN SODIUM 1,000 UN/ML (10ML VL) IV PRN (13:26)
[2020-10-27] MEDS ORDERED: HEPARIN SODIUM 1,000 UN/ML (10ML VL) IV ONE (13:26)
[2020-10-27] MEDS ORDERED: HEPARIN SOD,PORK IN 0.45% NACL 25,000 UNIT in 0.45% NACL 1 250ML.BAG IV SCH (13:30)
[2020-10-27] MEDS ORDERED: ACETAMINOPHEN TAB 325 MG TAB PO PRN (13:32)
[2020-10-27] MEDS ORDERED: LORazepam 2 MG/ML INJ IV PRN (13:32)
[2020-10-27] MEDS ORDERED: NALOXONE 0.4 MG/ML 1 ML VIAL IV PRN (13:32)
[2020-10-27] MEDS ORDERED: ONDANSETRON 4 MG/2 ML VIAL IVP STA (13:47)
[2020-10-27] MEDS ORDERED: fentaNYL (PF) 50 MCG/ML 2 ML AMP IVP STA (13:56)
[2020-10-27] MEDS: MORPHINE SULFATE 4 MG/ML SYRINGE IV PRN (14:20)
[2020-10-27] MEDS: SODIUM CHLORIDE 0.9% 1,000 ML IV SCH (17:18)
[2020-10-28] MEDS: SODIUM CHLORIDE 0.9% 1,000 ML IV SCH ×3 (00:31→08:00)
[2020-10-28 05:56] LABS: Anisocytosis Slight; Basophils % (A) 0 %; Eosinophils % (A) 0 %; HCT 39.3 % (39.0-53.0); HGB 13.7 gm/dL (13.0-17.5); Lymphocytes % (A) 12 %; MCHC 34.9 g/dL (31.0-37.0); MCV 88.7 fL (80.0-100.0); Mean Platelet Volume 8.4; Monocytes # (A) 0.2 k/uL (0-1.0); Monocytes % (A) 3 %; Neutrophils % (A) 84 %; Platelet Count 155 k/uL (150-450); RBC 4.42 m/uL (4.30-5.90); RDW 16.5 % (11.5-15.5); WBC 8.4 k/uL (3.8-10.6)
[2020-10-28 06:07] LABS: Albumin 3.1 g/dL (3.5-5.0); Calcium 8.9 mg/dL (8.4-10.2); Potassium 3.3 mmol/L (3.5-5.1); Total Bilirubin 1.3 mg/dL (0.2-1.3); Total Protein 6.1 g/dL (6.3-8.2)
[2020-10-28 06:16] LABS: INR 1.6 (<1.2); Prothrombin Time 15.9 sec (9.0-12.0)
[2020-10-28] MEDS: METOPROLOL TARTRATE 50 MG TAB PO SCH ×2 (11:13→20:08)
[2020-10-28] MEDS: ONDANSETRON 4 MG/2 ML VIAL IVP PRN ×2 (12:34→20:08)
--- NOTE | 2020-10-28 13:02 | XR ---
EXAMINATION TYPE: XR chest 1V DATE OF EXAM: 10/28/2020 COMPARISON: 10/27/2020 INDICATION: Short of breath TECHNIQUE: Single frontal view of the chest is obtained. FINDINGS: The heart size is normal. The pulmonary vasculature is normal. The lungs are clear. Bilateral shoulder prostheses are present. IMPRESSION: 1. No acute pulmonary process.
[2020-10-28 13:14] LABS: Amorphous Sediment,Urine Rare /hpf; Appearance,Urine Cloudy (Clear); Bilirubin,Urine Negative (Negative); Blood,Urine Negative (Negative); Color,Urine Dark Brown; Glucose,Urine (UA) Negative (Negative); Hyaline Casts,Urine 1 /lpf (0-2); Ketones,Urine Negative (Negative); Leukocyte Esterase,Urine Negative (Negative); Mucus,Urine Rare /hpf; Nitrite,Urine Negative (Negative); Protein,Urine Trace (Negative); RBC,Urine 1 /hpf (0-5); Specific Gravity,Urine 1.019 (1.001-1.035); Urobilinogen,Urine <2.0 mg/dL (<2.0); WBC,Urine 1 /hpf (0-5)
--- NOTE | 2020-10-28 14:36 | P.HPIM ---
History of Present Illness This is a pleasant 80 years old male with past medical history of dementia, hypertension, hyperlipidemia Reasons because of increased shortness of breath and weakness per family, this has been going on for about one week.pt has not been eating or drinking well . Also patient is lethargic and more drowsy than usual. Also patient vomited once yesterday and he felt nauseated today. No chest pain or dyspnea. Family at bedside he was tachycardic and tachypneic on the presentation. Heart rate around 110, tachypneic 22-26. He is saturating 99% on 4 L oxygen via nasal cannula. A febrile CBC is unremarkable, INR is 1.6. Creatinine is elevated at 4.7 and 4.5, baseline is 0.8. Sodium 140. Potassium 3.3. Elevated lactic acid 3.4 Back to normal at 1.8. Liver enzymes not elevated. Troponin is elevated at 0.1. ProBNP is 70 420. EKG showed sinus tachycardia at 104. Chest x-ray: No consolidation. Repeat chest x-ray today showing no acute changes. Bladder scan was checked showing only 260. He is not making much urine. Urine analysis is unremarkable Representation he was started on heparin drip which is currently stopped. Also normal saline at 130 milliliters per hour. Also he is given 50 mg of metoprolol twice daily by guest room attendant Review of systems CONSTITUTIONAL: No fever, no malaise, no fatigue. HEENT: No recent visual problems or hearing problems. Denied any sore throat. CARDIOVASCULAR: No orthopnea, PND, no palpitations, no syncope. PULMONARY: No shortness of breath, no cough, no hemoptysis. GASTROINTESTINAL: No diarrhea, no nausea, no vomiting, no abdominal pain. Normoactive bowel sounds. NEUROLOGICAL: No headaches, no weakness, no numbness. Active Medications Generic Name Dose Route Start Last Admin Trade Name Freq PRN Reason Stop Dose Admin Acetaminophen 650 mg 10/27/20 13:32 Acetaminophen Tab 325 Mg Tab PO Q6HR PRN Mild Pain or Fever > 100.5 Famotidine 10 mg 10/28/20 21:00 Famotidine 20 Mg/2 Ml Vial IV Q12HR [facility] Heparin Sodium (Porcine) 5,000 unit 10/28/20 21:00 Heparin Sodium,Porcine/Pf 5,000 Unit/0.5 Ml Syringe SQ Q12HR [facility] Sodium Chloride 1,000 mls @ 130 mls/hr 10/27/20 13:15 10/28/20 08:00 Saline 0.9% IV 130 mls/hr .[id number] [facility] Administration Lorazepam 0.5 mg 10/27/20 13:32 10/28/20 00:31 Lorazepam 2 Mg/Ml Inj IV 0.5 mg Q6HR PRN Administration Anxiety Metoprolol Tartrate 50 mg 10/28/20 11:15 10/28/20 11:13 Metoprolol Tartrate 50 Mg Tab PO 50 mg BID VELVET Administration Morphine Sulfate 4 mg 10/27/20 13:32 10/27/20 14:20 Morphine Sulfate 4 Mg/Ml Syringe IV 4 mg Q4HR PRN Administration Severe Pain Naloxone HCl 0.2 mg 10/27/20 13:32 Naloxone 0.4 Mg/Ml 1 Ml Vial IV Q2M PRN Opioid Reversal Ondansetron HCl 4 mg 10/28/20 12:27 10/28/20 12:34 Ondansetron 4 Mg/2 Ml Vial IVP 4 mg Q6HR PRN Administration Nausea And Vomiting Review of Systems CONSTITUTIONAL: No fever, no malaise, no fatigue. HEENT: No recent visual problems or hearing problems. Denied any sore throat. CARDIOVASCULAR: No orthopnea, PND, no palpitations, no syncope. PULMONARY: No shortness of breath, no cough, no hemoptysis. GASTROINTESTINAL: No diarrhea, no nausea, no vomiting, no abdominal pain. Normoactive bowel sounds. NEUROLOGICAL: No headaches, no weakness, no numbness. HEMATOLOGICAL: Denies any bleeding or petechiae. GENITOURINARY: Denies any burning micturition, frequency, or urgency. MUSCULOSKELETAL/RHEUMATOLOGICAL: Denies any joint pain, swelling, or any muscle pain. ENDOCRINE: Denies any polyuria or polydipsia. Past Medical History Past Medical History: Dementia, Hyperlipidemia, Hypertension Additional Past Medical History / Comment(s): trauma from fall in 2004 History of Any Multi-Drug Resistant Organisms: None Reported Past Surgical History: Back Surgery, Joint Replacement, Orthopedic Surgery Additional Past Surgical History / Comment(s): orthopedic surgeries from trauma, neck, right knee replacemet Past Psychological History: Depression Smoking Status: Former smoker Past Alcohol Use History: None Reported Past Drug Use History: None Reported - Past Family History Father History Unknown: Yes Medications and Allergies Home Medications Medication Instructions Recorded Confirmed Type Escitalopram [Lexapro] 20 mg PO HS 09/15/15 10/27/20 History Furosemide [Lasix] 20 mg PO HS 09/15/15 10/27/20 History Montelukast [Singulair] 10 mg PO HS 09/15/15 10/27/20 History Simvastatin [Zocor] 20 mg PO HS 09/15/15 10/27/20 History hydrALAZINE HCL [Apresoline] 50 mg PO BID@1200,2100 09/30/19 10/27/20 History Megestrol [Megace] 400 mg PO HS 10/27/20 10/27/20 History Allergies Allergy/AdvReac Type Severity Reaction Status Date / Time No Known Allergies Allergy Verified 10/27/20 13:26 Physical Exam Vitals: Vital Signs Temp Pulse Pulse Resp BP BP Pulse Ox 10/28/20 07:45 97.5 F L 110 H 22 136/88 99 10/28/20 03:12 26 H 10/28/20 03:11 97.3 F L 105 H 26 H 131/82 99 10/28/20 02:00 22 10/27/20 23:17 97.2 F L 95 22 125/72 98 10/27/20 19:35 97.2 F L 86 22 137/83 100 10/27/20 18:25 97.6 F 97 18 122/85 99 10/27/20 18:00 98.0 F 137 H 16 110/62 99 10/27/20 17:17 98.0 F 97 16 115/63 99 10/27/20 16:52 138 H 16 125/98 94 L 10/27/20 14:16 98 28 H 112/60 90 L 10/27/20 14:00 145 H 28 H 131/84 89 L 10/27/20 13:45 170 H 30 H 79/32 90 L 10/27/20 13:30 112 H 28 H 79/42 90 L 10/27/20 11:50 30 H 10/27/20 11:43 98.3 F 101 H 30 H 105/55 80 L Intake and Output 10/27/20 10/28/20 10/28/20 22:59 06:59 14:59 Intake Total 0 Output Total 522 Balance -522 0 Intake: Oral 0 Output: Urine 350 Post Void Residual 172 Other: # Voids 1 Weight 83 kg 87.5 kg -GENERAL: The patient is confused and sleepy, not in any acute distress. Well developed, well nourished. HEENT: Pupils are round and equally reacting to light. EOMI. No scleral icterus. No conjunctival pallor. Normocephalic, atraumatic. No pharyngeal erythema. No thyromegaly. CARDIOVASCULAR: S1 and S2 present. No murmurs, rubs, or gallops. PULMONARY: Chest is clear to auscultation, no wheezing or crackles. ABDOMEN: Soft, nontender, nondistended, normoactive bowel sounds. No palpable organomegaly. MUSCULOSKELETAL: No joint swelling or deformity. EXTREMITIES: No cyanosis, clubbing, or pedal edema. NEUROLOGICAL: Gross neurological examination did not reveal any focal deficits. SKIN: No rashes. No petechiae Results CBC & Chem 7: 10/28/20 05:42 10/28/20 05:42 Labs: Abnormal Lab Results - Last 24 Hours (Table) 10/27/20 10/27/20 10/27/20 Range/Units 11:59 11:59 11:59 RDW 16.9 H (11.5-15.5) % PT 16.1 H (9.0-12.0) sec INR 1.6 H (<1.2) Potassium 3.4 L (3.5-5.1) mmol/L Chloride (98-107) mmol/L Carbon Dioxide 12 L (22-30) mmol/L BUN 75 H (9-20) mg/dL Creatinine 4.70 H (0.66-1.25) mg/dL Glucose 192 H (74-99) mg/dL Plasma Lactic Acid Henry (0.7-2.0) mmol/L AST 70 H (17-59) U/L Troponin I (0.000-0.034) ng/mL Total Protein (6.3-8.2) g/dL Albumin (3.5-5.0) g/dL 10/27/20 10/27/20 10/27/20 Range/Units 11:59 11:59 16:04 RDW (11.5-15.5) % PT (9.0-12.0) sec INR (<1.2) Potassium (3.5-5.1) mmol/L Chloride (98-107) mmol/L Carbon Dioxide (22-30) mmol/L BUN (9-20) mg/dL Creatinine (0.66-1.25) mg/dL Glucose (74-99) mg/dL Plasma Lactic Acid Henry 8.3 H* 3.2 H* (0.7-2.0) mmol/L AST (17-59) U/L Troponin I 0.135 H* (0.000-0.034) ng/mL Total Protein (6.3-8.2) g/dL Albumin (3.5-5.0) g/dL 10/27/20 10/27/20 10/28/20 Range/Units 18:55 21:38 01:11 RDW (11.5-15.5) % PT (9.0-12.0) sec INR (<1.2) Potassium (3.5-5.1) mmol/L Chloride (98-107) mmol/L Carbon Dioxide (22-30) mmol/L BUN (9-20) mg/dL Creatinine (0.66-1.25) mg/dL Glucose (74-99) mg/dL Plasma Lactic Acid Henry 2.5 H* 2.2 H* 3.4 H* (0.7-2.0) mmol/L AST (17-59) U/L Troponin I (0.000-0.034) ng/mL Total Protein (6.3-8.2) g/dL Albumin (3.5-5.0) g/dL 10/28/20 10/28/20 10/28/20 Range/Units 05:42 05:42 05:42 RDW 16.5 H (11.5-15.5) % PT 15.9 H (9.0-12.0) sec INR 1.6 H (<1.2) Potassium 3.3 L (3.5-5.1) mmol/L Chloride 110 H (98-107) mmol/L Carbon Dioxide 15 L (22-30) mmol/L BUN 81 H (9-20) mg/dL Creatinine 4.58 H (0.66-1.25) mg/dL Glucose 127 H (74-99) mg/dL Plasma Lactic Acid Henry (0.7-2.0) mmol/L AST (17-59) U/L Troponin I (0.000-0.034) ng/mL Total Protein 6.1 L (6.3-8.2) g/dL Albumin 3.1 L (3.5-5.0) g/dL Thrombosis Risk Factor Assmnt - Choose All That Apply Any of the Below Risk Factors Present?: Yes Other Risk Factors: Yes Each Risk Factor Represents 3 Points: Age 75 years or older Other congenital or acquired thrombophilia - If yes, enter type in comment: No Thrombosis Risk Factor Assessment Total Risk Factor Score: 3 Thrombosis Risk Factor Assessment Level: Moderate Risk Assessment and Plan Assessment: Acute kidney injury Metabolic encephalopathy Elevated troponin Dementia Hypertension Hyperlipidemia Plan: This is a pleasant 80 years old male who presents with HILL. Continue with IV fluids. Check renal ultrasound. Consult nephrology team Cardiology team of the case Labs and medication were reviewed.. Continue same treatment. Continue with symptomatic treatment. Resume home medication. Monitor lytes and vitals. DVT and GI prophylaxis. Further recommendations depends on the clinical course of the patient DVT prophylaxis: Subcutaneous heparin GI Prophylaxis: Pepcid PT/OT: Pending Prognosis is guarded Patient is made no code by family
[2020-10-28] MEDS ORDERED: QUEtiapine 25 MG TAB PO PRN (19:54)
[2020-10-28] MEDS: HEPARIN SODIUM,PORCINE/PF 5,000 UNIT/0.5 ML SYRINGE SQ SCH (20:08)
[2020-10-28] MEDS: FAMOTIDINE 20 MG/2 ML VIAL IV SCH (20:08)
--- NOTE | 2020-10-28 21:20 | US ---
EXAMINATION TYPE: US kidneys/renal and bladder DATE OF EXAM: 10/28/2020 COMPARISON: NONE CLINICAL HISTORY: decreased urine output . Decreased urine output. EXAM MEASUREMENTS: Right Kidney: 9.4 x 6.9 x 5.5 cm Left Kidney: 9.4 x 6.0 x 5.3 cm Right Kidney: Anechoic area seen upper pole: 1.1 x 1.4 x 1.4 cm. Left Kidney: Limited. No abnormalities seen at this time. Bladder: Not fully distended, limited evaluation. Bilateral Jets seen: No IMPRESSION: No evidence of solid renal mass or obstruction. No evidence of a bladder mass.
[2020-10-29] MEDS ORDERED: FUROSEMIDE 10 MG/ML 10 ML VIAL IV STA (01:17)
[2020-10-29] MEDS: SODIUM CHLORIDE 0.9% 1,000 ML IV SCH ×3 (01:28→06:40)
[2020-10-29 07:43] LABS: Anisocytosis Slight; Basophils % (A) 0 %; Eosinophils % (A) 0 %; HCT 37.3 % (39.0-53.0); HGB 12.8 gm/dL (13.0-17.5); Lymphocytes # (A) 0.9 k/uL (1.0-4.8); Lymphocytes % (A) 10 %; MCH 30.8 pg (25.0-35.0); MCHC 34.4 g/dL (31.0-37.0); MCV 89.6 fL (80.0-100.0); Mean Platelet Volume 8.8; Monocytes # (A) 0.3 k/uL (0-1.0); Monocytes % (A) 3 %; Neutrophils # (A) 7.6 k/uL (1.3-7.7); Neutrophils % (A) 86 %; Platelet Count 119 k/uL (150-450); RBC 4.17 m/uL (4.30-5.90); RDW 16.4 % (11.5-15.5); WBC 8.8 k/uL (3.8-10.6)
[2020-10-29 08:03] LABS: Calcium 8.6 mg/dL (8.4-10.2); Magnesium 2.2 mg/dL (1.6-2.3); Potassium 3.9 mmol/L (3.5-5.1)
--- NOTE | 2020-10-29 08:34 | P.CRDCN ---
History of Present Illness Consult date: 10/29/20 History of present illness: HISTORY OF PRESENT ILLNESS: This is a 80-year-old male with a past medical history significant for dementia, hyperlipidemia, hypertension, and osteoarthritis, depression, and former nicotine dependence. 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 We have been asked to see the patient in consultation for tachycardia. Patient examined at the bedside. Patient apparently presented to the hospital secondary to weakness and shortness of breath. It is noted the patient has a history of dementia and he is a poor historian. Patient is unable to recall the reason why he came to the hospital. At the time of my examination, he denies chest pain or pressure. He denies shortness of breath. Patient was found to be in acute renal failure. He has been receiving IV fluids at 130 mL an hour. Nephrology is following. Patient was also found to have significant lactic acidosis upon presentation to the hospital with a lactic acid of 8.3. Most recent lactic acid 1.8. Patient was tachycardic yesterday with a heart rate in the 140s. Patient was started on metoprolol. Patient's heart rate right now is controlled in the 80s. Blood pressure 108/73. Patient did receive a dose of IV Lasix overnight per nephrology with minimal urine output. EKG reveals sinus tachycardia. Heart rate 104. T-wave inversions in inferior leads. ST depression noted in precordial leads. Chest xray negative for acute process Laboratory data: WBC 8.8. Hemoglobin 12.8. Platelet count 119. Sodium 141. Potassium 3.9. BUN 88. Creatinine 4.68. BNP 7420. Troponin 0.135. Current home cardiac medications include Lasix 20 mg daily, simvastatin 20 g daily, and hydralazine 50 mg twice a day Most recent echocardiogram performed in September 2019 was a technically difficult study with suboptimal views. LV function appeared fair. Valves were not well visualized. REVIEW OF SYSTEMS: At the time of my exam: CONSTITUTIONAL: Denies fever or chills. HEENT: Denies blurred vision, vision changes, or eye pain. Denies hemoptysis CARDIOVASCULAR: Denies chest pain. Denies orthopnea. Denies PND. Denies pa lpitations RESPIRATORY: Denies shortness of breath. GASTROINTESTINAL: Denies abdominal pain. Denies nausea or vomiting. HEMATOLOGIC: Denies bleeding disorders. GENITOURINARY: Denies any blood in urine. SKIN: Denies pruitis. Denies rash. PHYSICAL EXAM: VITAL SIGNS: Reviewed. GENERAL: Well-developed in no acute distress. HEENT: Head is normocephalic. Pupils are equal, round. Sclerae anicteric. Mucous membranes of the mouth are moist. Neck supple. No JVD or thyromegaly LUNGS: Respirations even and unlabored. Lungs diminished with scattered rhonchi HEART: Regular rate and rhythm. S1 and S2 heard. ABDOMEN: Soft. Nondistended. Nontender. EXTREMITIES: Normal range of motion. No clubbing or cyanosis. Peripheral pulses intact. No lower extremity edema NEUROLOGIC: Patient slightly lethargic at times examination. Patient able to answer yes or no questions. ASSESSMENT: Generalized weakness Shortness of breath Acute renal failure Lactic acidosis Sinus tachycardia Abnormal troponin, may be secondary to acute renal failure, cannot rule out non- STEMI as patient does have EKG changes Hypertension Hyperlipidemia Osteoarthritis Depression Former nicotine dependence PLAN: Obtain 2D echo to assess cardiac structure and function Obtain additional troponin Continue metoprolol. Decrease dose to 25mg BID Add aspirin 81 mg daily Lipitor 40 g daily Obtain lipid panel Nephrology following for acute renal failure Further recommendations pending patient course Nurse practitioner note has been reviewed by physician. Signing provider agrees with the documented findings, assessment, and plan of care. Past Medical History Past Medical History: Dementia, Hyperlipidemia, Hypertension Additional Past Medical History / Comment(s): trauma from fall in 2004 History of Any Multi-Drug Resistant Organisms: None Reported Past Surgical History: Back Surgery, Joint Replacement, Orthopedic Surgery Additional Past Surgical History / Comment(s): orthopedic surgeries from trauma, neck, right knee replacemet Past Psychological History: Depression Smoking Status: Former smoker Past Alcohol Use History: None Reported Past Drug Use History: None Reported - Past Family History Father History Unknown: Yes Medications and Allergies Home Medications Medication Instructions Recorded Confirmed Type Escitalopram [Lexapro] 20 mg PO HS 09/15/15 10/27/20 History Furosemide [Lasix] 20 mg PO HS 09/15/15 10/27/20 History Montelukast [Singulair] 10 mg PO HS 09/15/15 10/27/20 History Simvastatin [Zocor] 20 mg PO HS 09/15/15 10/27/20 History hydrALAZINE HCL [Apresoline] 50 mg PO BID@1200,2100 09/30/19 10/27/20 History Megestrol [Megace] 400 mg PO HS 10/27/20 10/27/20 History Allergies Allergy/AdvReac Type Severity Reaction Status Date / Time No Known Allergies Allergy Verified 10/27/20 13:26 Physical Exam Vitals: Vital Signs Temp Pulse Resp BP Pulse Ox 10/29/20 03:27 97.5 F L 79 18 108/73 97 10/29/20 02:00 20 10/29/20 00:00 97.4 F L 84 20 111/76 98 10/28/20 19:32 22 10/28/20 19:29 97.1 F L 83 22 115/75 98 10/28/20 16:00 98.3 F 89 22 108/71 95 10/28/20 12:00 97.5 F L 99 23 134/85 98 Intake and Output 10/28/20 10/29/20 10/29/20 22:59 06:59 14:59 Intake Total 240 Balance 240 Intake: Oral 240 Other: Weight 91.5 kg Results 10/29/20 07:23 10/29/20 07:23 CBC 10/29/20 Range/Units 07:23 WBC 8.8 (3.8-10.6) k/uL RBC 4.17 L (4.30-5.90) m/uL Hgb 12.8 L (13.0-17.5) gm/dL Hct 37.3 L (39.0-53.0) % Plt Count 119 L (150-450) k/uL Comprehensive Metabolic Panel 10/29/20 Range/Units 07:23 Sodium 141 (137-145) mmol/L Potassium 3.9 (3.5-5.1) mmol/L Chloride 113 H (98-107) mmol/L Carbon Dioxide 15 L (22-30) mmol/L BUN 88 H (9-20) mg/dL Creatinine 4.68 H (0.66-1.25) mg/dL Glucose 129 H (74-99) mg/dL Calcium 8.6 (8.4-10.2) mg/dL Current Medications Generic Name Dose Route Start Last Admin Trade Name Freq PRN Reason Stop Dose Admin Acetaminophen 650 mg 10/27/20 13:32 Acetaminophen Tab 325 Mg Tab PO Q6HR PRN Mild Pain or Fever > 100.5 Aspirin 81 mg 10/29/20 09:00 Aspirin 81 Mg PO DAILY VELVET Atorvastatin Calcium 40 mg 10/29/20 21:00 Atorvastatin 40 Mg Tab PO HS VELVET Famotidine 10 mg 10/28/20 21:00 10/28/20 20:08 Famotidine 20 Mg/2 Ml Vial IV 10 mg Q12HR VELVET Administration Heparin Sodium (Porcine) 5,000 unit 10/28/20 21:00 10/28/20 20:08 Heparin Sodium,Porcine/Pf 5,000 Unit/0.5 Ml Syringe SQ 5,000 unit Q12HR VELVET Administration Sodium Chloride 1,000 mls @ 130 mls/hr 10/27/20 13:15 10/29/20 06:40 Saline 0.9% IV 130 mls/hr .Q7H42M VELVET Administration Metoprolol Tartrate 25 mg 10/29/20 09:00 Metoprolol Tartrate 25 Mg Tab PO BID VELVET Morphine Sulfate 4 mg 10/27/20 13:32 10/27/20 14:20 Morphine Sulfate 4 Mg/Ml Syringe IV 4 mg Q4HR PRN Administration Severe Pain Naloxone HCl 0.2 mg 10/27/20 13:32 Naloxone 0.4 Mg/Ml 1 Ml Vial IV Q2M PRN Opioid Reversal Ondansetron HCl 4 mg 10/28/20 12:27 10/28/20 20:08 Ondansetron 4 Mg/2 Ml Vial IVP 4 mg Q6HR PRN Administration Nausea And Vomiting Quetiapine Fumarate 25 mg 10/28/20 19:54 10/28/20 20:08 Quetiapine 25 Mg Tab PO 25 mg BID PRN Administration Agitation or Acute Anxiety Intake and Output 10/28/20 10/29/20 10/29/20 22:59 06:59 14:59 Intake Total 240 Balance 240 Intake: Oral 240 Other: Weight 91.5 kg 10/29/20 07:23 10/29/20 07:23
[2020-10-29] MEDS ORDERED: METOPROLOL TARTRATE 25 MG TAB PO SCH ×2 (09:00)
[2020-10-29] MEDS: ASPIRIN 81 MG PO SCH (09:50)
[2020-10-29] MEDS: FAMOTIDINE 20 MG/2 ML VIAL IV SCH ×2 (09:50→21:40)
[2020-10-29] MEDS: HEPARIN SODIUM,PORCINE/PF 5,000 UNIT/0.5 ML SYRINGE SQ SCH ×2 (09:50→21:40)
[2020-10-29] MEDS: MIDODRINE 5 MG TAB PO SCH ×3 (10:33→19:37)
--- NOTE | 2020-10-29 10:40 | XR ---
EXAMINATION TYPE: XR chest 1V DATE OF EXAM: 10/29/2020 COMPARISON: 10/28/2020 INDICATION: Short of breath TECHNIQUE: Single frontal view of the chest is obtained. FINDINGS: The heart size is normal. The pulmonary vasculature is normal. Mild left lower lobe infiltrate is suspected in the retrocardiac region. Correlate for pneumonia or a telectasis. Mild right infrahilar infiltrate may be present. Bilateral shoulder prostheses are present. IMPRESSION: 1. Right infrahilar and left lower retrocardiac infiltrates. Correlate for pneumonia or atelectasis. Follow-up can be performed.
[2020-10-29] MEDS ORDERED: PIPERACILLIN-TAZOBACTAM 3.375 GM in SODIUM CHLORIDE 0.9% 100 ML IVPB SCH (12:00)
--- NOTE | 2020-10-29 12:07 | P.PN ---
Subjective This is a pleasant 80 years old male with past medical history of dementia, hypertension, hyperlipidemia Reasons because of increased shortness of breath and weakness per family, this has been going on for about one week.pt has not been eating or drinking well . Also patient is lethargic and more drowsy than usual. Also patient vomited once yesterday and he felt nauseated today. No chest pain or dyspnea. Family at bedside he was tachycardic and tachypneic on the presentation. Heart rate around 110, tachypneic 22-26. He is saturating 99% on 4 L oxygen via nasal cannula. A febrile CBC is unremarkable, INR is 1.6. Creatinine is elevated at 4.7 and 4.5, baseline is 0.8. Sodium 140. Potassium 3.3. Elevated lactic acid 3.4 Back to normal at 1.8. Liver enzymes not elevated. Troponin is elevated at 0.1. ProBNP is 70 420. EKG showed sinus tachycardia at 104. Chest x-ray: No consolidation. Repeat chest x-ray today showing no acute c hanges. Bladder scan was checked showing only 260. He is not making much urine. Urine analysis is unremarkable Representation he was started on heparin drip which is currently stopped. Also normal saline at 130 milliliters per hour. Also he is given 50 mg of metoprolol twice daily by vault service mechanic 10/29/2020 Patient still confused similar to yesterday, does not looks pain, he denies abdominal pain or chest pain. When I saw him he did not have significant dyspnea, however O on he got a little bit more short of breath and repeat chest x-ray today showed right infrahilar and left lower retrocardiac infiltrate. Correlate for pneumonia. Which is new compared to chest x-ray from yesterday w [facility] showed no acute process. In view of patient vomited yesterday aspiration pneumonia is suspected. Cardiology started the patient on Zosyn and ask for swallow evaluation tomorrow His blood pressure also went down this morning 76/50, because of this metoprolol dose was lowered from 50 mg down to 25 twice a day by cardiology team, medial drain is added. Also patient continued on normal saline at 4:30 milliliters per hour Currently his blood pressure improved 98/66. He is saturating 94% on 2 L, he is a febrile. Creatinine is similar to yesterday at 4.6. Rest of CBC and BMP is unremarkable. On in today 2 showing 0.08 Visiting Teacher also saw the patient on aspirin and Lipitor 40 mg. Review of systems CONSTITUTIONAL: No fever, no malaise, no fatigue. HEENT: No recent visual problems or hearing problems. Denied any sore throat. CARDIOVASCULAR: No orthopnea, PND, no palpitations, no syncope. PULMONARY: No shortness of breath, no cough, no hemoptysis. GASTROINTESTINAL: No diarrhea, no nausea, no vomiting, no abdominal pain. Normoactive bowel sounds. NEUROLOGICAL: No headaches, no weakness, no numbness. Active Medications Generic Name Dose Route Start Last Admin Trade Name Freq PRN Reason Stop Dose Admin Acetaminophen 650 mg 10/27/20 13:32 Acetaminophen Tab 325 Mg Tab PO Q6HR PRN Mild Pain or Fever > 100.5 Aspirin 81 mg 10/29/20 09:00 10/29/20 09:50 Aspirin 81 Mg PO 81 mg DAILY VELVET Administration Atorvastatin Calcium 40 mg 10/29/20 21:00 Atorvastatin 40 Mg Tab PO HS VELVET Famotidine 10 mg 10/28/20 21:00 10/29/20 09:50 Famotidine 20 Mg/2 Ml Vial IV 10 mg Q12HR VELVET Administration Heparin Sodium (Porcine) 5,000 unit 10/28/20 21:00 10/29/20 09:50 Heparin Sodium,Porcine/Pf 5,000 Unit/0.5 Ml Syringe SQ 5,000 unit Q12HR VELVET Administration Sodium Chloride 1,000 mls @ 130 mls/hr 10/27/20 13:15 10/29/20 06:40 Saline 0.9% IV 130 mls/hr .Q7H42M VELVET Administration Metoprolol Tartrate 25 mg 10/29/20 09:00 10/29/20 09:50 Metoprolol Tartrate 25 Mg Tab PO 25 mg BID VELVET Administration Midodrine 5 mg 10/29/20 12:30 10/29/20 10:33 Midodrine 5 Mg Tab PO 5 mg AC-TID VELVET Administration Morphine Sulfate 4 mg 10/27/20 13:32 10/27/20 14:20 Morphine Sulfate 4 Mg/Ml Syringe IV 4 mg Q4HR PRN Administration Severe Pain Naloxone HCl 0.2 mg 10/27/20 13:32 Naloxone 0.4 Mg/Ml 1 Ml Vial IV Q2M PRN Opioid Reversal Ondansetron HCl 4 mg 10/28/20 12:27 10/28/20 20:08 Ondansetron 4 Mg/2 Ml Vial IVP 4 mg Q6HR PRN Administration Nausea And Vomiting Quetiapine Fumarate 25 mg 10/28/20 19:54 10/28/20 20:08 Quetiapine 25 Mg Tab PO 25 mg BID PRN Administration Agitation or Acute Anxiety Objective - Vital Signs Vital signs: Vital Signs Temp 97.7 F 10/29/20 08:00 Pulse 64 10/29/20 10:36 Resp 24 10/29/20 10:36 BP 98/66 10/29/20 10:36 Pulse Ox 94 L 10/29/20 10:36 Intake & Output 10/28/20 10/29/20 10/29/20 18:59 06:59 18:59 Intake Total 1580 240 Output Total 100 Balance 1480 240 Weight 91.5 kg Intake: Intake, IV Titration 1100 Amount Sodium Chloride 0.9% 1, 1100 000 ml @ 130 mls/hr IV . Q7H42M [facility] Rx#:[id number] Oral 480 240 Output: Urine 100 - Exam -GENERAL: The patient is confused and sleepy, not in any acute distress. Well developed, well nourished. HEENT: Pupils are round and equally reacting to light. EOMI. No scleral icterus. No conjunctival pallor. Normocephalic, atraumatic. No pharyngeal erythema. No thyromegaly. CARDIOVASCULAR: S1 and S2 present. No murmurs, rubs, or gallops. PULMONARY: Chest is clear to auscultation, no wheezing or crackles. ABDOMEN: Soft, nontender, nondistended, normoactive bowel sounds. No palpable organomegaly. MUSCULOSKELETAL: No joint swelling or deformity. EXTREMITIES: No cyanosis, clubbing, or pedal edema. NEUROLOGICAL: Gross neurological examination did not reveal any focal deficits. SKIN: No rashes. No petechiae - Labs CBC & Chem 7: 10/29/20 07:23 10/29/20 07:23 Labs: Abnormal Lab Results - Last 24 Hours (Table) 10/28/20 10/29/20 10/29/20 Range/Units 12:45 07:23 07:23 RBC 4.17 L (4.30-5.90) m/uL Hgb 12.8 L (13.0-17.5) gm/dL Hct 37.3 L (39.0-53.0) % RDW 16.4 H (11.5-15.5) % Plt Count 119 L (150-450) k/uL Lymphocytes # 0.9 L (1.0-4.8) k/uL Chloride 113 H (98-107) mmol/L Carbon Dioxide 15 L (22-30) mmol/L BUN 88 H (9-20) mg/dL Creatinine 4.68 H (0.66-1.25) mg/dL Glucose 129 H (74-99) mg/dL Troponin I (0.000-0.034) ng/mL Urine Protein Trace H (Negative) Amorphous Sediment Rare H (None) /hpf Urine Mucus Rare H (None) /hpf 10/29/20 10/29/20 Range/Units 07:23 10:18 RBC (4.30-5.90) m/uL Hgb (13.0-17.5) gm/dL Hct (39.0-53.0) % RDW (11.5-15.5) % Plt Count (150-450) k/uL Lymphocytes # (1.0-4.8) k/uL Chloride (98-107) mmol/L Carbon Dioxide (22-30) mmol/L BUN (9-20) mg/dL Creatinine (0.66-1.25) mg/dL Glucose (74-99) mg/dL Troponin I 0.089 H* 0.088 H* (0.000-0.034) ng/mL Urine Protein (Negative) Amorphous Sediment (None) /hpf Urine Mucus (None) /hpf Assessment and Plan Assessment: Acute kidney injury Metabolic encephalopathy Right infrahilar and left retrocardiac infiltrate suspicious for aspiration pneumonia Mild acute hypoxic respiratory failure Elevated troponin, possible related to coronary artery disease Dementia Hypertension Hyperlipidemia Plan: This is a pleasant 80 years old male who presents with HILL. Continue with IV fluids. Nephrology consult on the case Continue with aspirin, Lipitor and echocardiogram team, Cardiology team on the case Start Zosyn and check sputum culture. Swallow evaluation in the morning Labs and medication were reviewed.. Continue same treatment. Continue with symptomatic treatment. Resume home medication. Monitor lytes and vitals. DVT and GI prophylaxis. Further recommendations depends on the clinical course of the patient DVT prophylaxis: Subcutaneous heparin GI Prophylaxis: Pepcid PT/OT: Pending Prognosis is guarded Patient is made no code by family
--- NOTE | 2020-10-29 13:02 | CONS ---
CONSULTATION REASON FOR CONSULT: Renal failure. HISTORY OF PRESENT ILLNESS: Patient is a 80-year-old male who is admitted to the hospital with complaints of shortness of breath, increased weakness. He had not been drinking or eating much prior to admission. The patient is noted to have an elevated creatinine of 4.7 with a previous creatinine of 0.8 mg/dL on 03/19/2020. Blood pressure has been low with systolic 70s to 80s and urine output has been low as well. Postvoid residual was not elevated. Ultrasound does not show any evidence of hydronephrosis. Medications at home included Lasix. No history of use of NSAIDs. The patient is a poor historian and it does not appear that he has received any IV contrast recently. PAST MEDICAL HISTORY: Hypertension, hyperlipidemia, dementia. PAST SURGICAL HISTORY: Back surgery, right knee arthroplasty. SOCIAL HISTORY: Patient is a former smoker. No history of drug abuse or alcohol abuse. MEDICATIONS: Medications at home included Lexapro, Lasix, Singulair, Zocor, hydralazine, Megace. ALLERGIES: None. PHYSICAL EXAMINATION: Patient is currently comfortable. He is mildly short of breath not in any acute distress. He is confused. Blood pressure is 76/50, heart rate 61 per minute. He is afebrile. Examination of the heart S1, S2. Examination of the lungs, bilateral breath sounds are heard. Abdomen is soft, nontender. Examination of lower extremities shows no significant edema. TOOL LATHE OPERATOR exam shows patient moving all 4 extremities, but he is confused. LABS: Show sodium 141, potassium 3.9, chloride 113, CO2 is 15, BUN 88, serum creatinine 4.68, hemoglobin 12.8 g/dL. ASSESSMENT: 1. Acute kidney injury, acute tubular necrosis with urine output, currently on the lower side. Etiology hypotension. No nephrotoxic agents noted. No evidence of obstruction. Postvoid residual is not elevated. I will continue with the IV fluids and add midodrine for the low blood pressure. 2. Hopefully patient will not renal replacement therapy. He received a dose of IV Lasix to help with the urine output. However, if his urine output remains low and renal function continues to worsen, we may need to start dialysis in the next 24-48 hours. 3. Hypotension possibly related to underlying sepsis/pneumonia. 4. Pneumonia with chest x-ray showing right infrahilar left lower retrocardiac infiltrates maintained on empiric antibiotics. 5. History of dyslipidemia. 6. Metabolic acidosis secondary to renal failure, non gap. 7. Hypokalemia associated with decreased oral intake. PLAN: Continue with IV fluids. Check chest x-ray. Switch IV fluids to IV bicarb. Add midodrine and repeat labs in a.m. Continue to avoid nephrotoxic agents. Thank you for this consultation. Will continue to follow the patient with you during his hospitalization. MMJOSEPHL / LORIN: [id number] /
[2020-10-29] MEDS: PIPERACILLIN-TAZOBACTAM 3.375 GM in SODIUM CHLORIDE 0.9% 100 ML IVPB SCH (13:41)
[2020-10-29] MEDS: DEXTROSE 5% IN WATER 1,000 ML with SODIUM BICARB (1 MEQ/ML) 150 ML IV SCH (15:07)
[2020-10-29] MEDS: METOPROLOL TARTRATE 12.5 MG TAB PO SCH (21:40)
[2020-10-29] MEDS: ATORVASTATIN 40 MG TAB PO SCH (21:41)
[2020-10-30] MEDS: PIPERACILLIN-TAZOBACTAM 3.375 GM in SODIUM CHLORIDE 0.9% 100 ML IVPB SCH ×3 (00:01→23:27)
[2020-10-30] MEDS: DEXTROSE 5% IN WATER 1,000 ML with SODIUM BICARB (1 MEQ/ML) 150 ML IV SCH (00:20)
--- NOTE | 2020-10-30 07:49 | P.PN ---
Subjective Progress Note Date: 10/30/20 Principal diagnosis: Bilateral pneumonia with acute renal failure and elevated troponin. The patient is a 80-year-old white male who struggles with end-stage dementia. He is admitted secondary to significant weight loss and poor by mouth intake. He is lost about 40 pounds in last 6 months. He comes in with significant weakness bilateral pneumonia with acute renal failure. Appreciate multiple consultants input. Poor historian otherwise. Objective - Vital Signs Vital signs: Vital Signs Temp 97.9 F 10/30/20 04:00 Pulse 61 10/30/20 04:00 Resp 21 10/30/20 04:00 BP 107/68 10/30/20 04:00 Pulse Ox 99 10/30/20 04:00 Intake & Output 10/29/20 10/30/20 10/30/20 18:59 06:59 18:59 Intake Total 480 Balance 480 Weight 89 kg Intake: Oral 480 Other: # Voids 0 0 - Constitutional General appearance: Present: obese - EENT Eyes: Absent: abnormal pupil - Neck Neck: Absent: lymphadenopathy - Respiratory Respiratory: bilateral: diminished - Cardiovascular Rhythm: regular Heart sounds: normal: S1, S2 Abnormal Heart Sounds: Absent: S3 Gallop - Gastrointestinal General gastrointestinal: Present: soft. Absent: tenderness - Labs CBC & Chem 7: 10/29/20 07:23 10/29/20 07:23 Labs: Abnormal Lab Results - Last 24 Hours (Table) 10/29/20 10/29/20 10/29/20 Range/Units 07:23 07:23 10:18 Chloride 113 H (98-107) mmol/L Carbon Dioxide 15 L (22-30) mmol/L BUN 88 H (9-20) mg/dL Creatinine 4.68 H (0.66-1.25) mg/dL Glucose 129 H (74-99) mg/dL Troponin I 0.089 H* 0.088 H* (0.000-0.034) ng/mL Assessment and Plan (1) ARF (acute renal failure) Current Visit: Yes Status: Acute Code(s): N17.9 - ACUTE KIDNEY FAILURE, UNSPECIFIED SNOMED Code(s): 35017305 (2) NSTEMI (non-ST elevated myocardial infarction) Current Visit: Yes Status: Acute Code(s): I21.4 - NON-ST ELEVATION (NSTEMI) MYOCARDIAL INFARCTION SNOMED Code(s): 94090031 (3) Alzheimer's dementia Current Visit: No Status: Acute Code(s): G30.9 - ALZHEIMER'S DISEASE, UNSPECIFIED; F02.80 - DEMENTIA IN OTH DISEASES CLASSD ELSWHR W/O BEHAVRL DISTURB SNOMED Code(s): 13343367 (4) Confusion Current Visit: No Status: Acute Code(s): R41.0 - DISORIENTATION, UNSPECIFIED SNOMED Code(s): 999855474 (5) Hyperlipidemia Current Visit: No Status: Acute Code(s): E78.5 - HYPERLIPIDEMIA, UNSPECIFIED SNOMED Code(s): 96451365 (6) Hypertension Current Visit: No Status: Acute Code(s): I10 - ESSENTIAL (PRIMARY) HYPERTENSION SNOMED Code(s): 04683851 Plan: Continue supportive care. Question element of discharge planning. Dietary intake issue related to memory and generalized weakness. Appreciate nephrology input. Check CBC and CMP in a.m. Prognosis is guarded
[2020-10-30] MEDS: FAMOTIDINE 20 MG/2 ML VIAL IV SCH ×2 (08:16→21:13)
[2020-10-30] MEDS: HEPARIN SODIUM,PORCINE/PF 5,000 UNIT/0.5 ML SYRINGE SQ SCH ×2 (08:16→21:13)
[2020-10-30 09:31] LABS: Calcium 8.3 mg/dL (8.4-10.2); Magnesium 2.2 mg/dL (1.6-2.3); Potassium 3.7 mmol/L (3.5-5.1)
[2020-10-30] MEDS ORDERED: FUROSEMIDE 10 MG/ML 10 ML VIAL IV STA (09:51)
--- NOTE | 2020-10-30 10:00 | P.PN ---
Subjective Patient is seen in follow-up for acute kidney injury. Renal function continues to worsen. Oliguric. Patient is not a reliable historian due to dementia. Family present at bedside. Maintained on bicarb drip. Acidosis better. Vital signs are stable. General: The patient appeared well nourished and normally developed. HEENT: Head exam is unremarkable. On nasal cannula. LUNGS: Breath sounds decreased. HEART: Rate and Rhythm are regular. ABDOMEN: Soft, no distention. EXTREMITITES: Trace edema. Objective - Vital Signs Vital signs: Vital Signs Temp 99.1 F 10/30/20 07:51 Pulse 64 10/30/20 07:52 Resp 23 10/30/20 07:52 BP 106/69 10/30/20 07:51 Pulse Ox 98 10/30/20 07:51 Intake & Output 10/29/20 10/30/20 10/30/20 18:59 06:59 18:59 Intake Total 480 Output Total 100 Balance 480 -100 Weight 89 kg Intake: Oral 480 Output: Urine 100 Uretheral (Dillard) 100 Other: # Voids 0 0 - Labs CBC & Chem 7: 10/29/20 07:23 10/30/20 08:09 Labs: Abnormal Lab Results - Last 24 Hours (Table) 10/29/20 10/30/20 Range/Units 10:18 08:09 Chloride 108 H (98-107) mmol/L Carbon Dioxide 21 L (22-30) mmol/L BUN 102 H* (9-20) mg/dL Creatinine 5.47 H (0.66-1.25) mg/dL Glucose 143 H (74-99) mg/dL Calcium 8.3 L (8.4-10.2) mg/dL Troponin I 0.088 H* (0.000-0.034) ng/mL Assessment and Plan Plan: Assessment: 1. Acute kidney injury secondary to ATN secondary to hypotension. Renal function continues to worsen. Oliguric. Creatinine 5.47 today. Creatinine was 0.8 in March 2020. No hydronephrosis noted on kidney ultrasound. UA fairly benign. 2. Metabolic acidosis secondary to acute kidney injury. Improved with bicarbonate drip. 3. Hypokalemia from poor intake. Replaced. Better. 4. Pneumonia maintained on antibiotics. Plan: Stop bicarb drip. Start normal saline at 50 mL an hour. Lasix 80 mg IV once today. Due to worsening renal function and oliguria, initiate renal replacement therapy. Family agreeable. Consult vascular surgery for dialysis catheter placement. Plan for first treatment of hemodialysis today and second treatment water. Insert Dillard catheter for strict is and os. Monitor for renal recovery.
[2020-10-30] MEDS: SODIUM CHLORIDE 0.9% 1,000 ML IV SCH (10:14)
--- NOTE | 2020-10-30 10:47 | P.PN ---
Subjective Progress Note Date: 10/30/20 HISTORY OF PRESENT ILLNESS: This is a 80-year-old male with a past medical history significant for dementia, hyperlipidemia, hypertension, and osteoarthritis, depression, and former nicotine dependence. Patient does not follow with a rehabilitation technician. We have been asked to see the patient in consultation for tachycardia. Patient examined at the bedside. Patient apparently presented to the hospital secondary to weakness and shortness of breath. It is noted the patient has a history of dementia and he is a poor historian. Patient is unable to recall the reason why he came to the hospital. At the time of my examination, he denies chest pain or pressure. He denies shortness of breath. Patient was found to be in acute renal failure. He has been receiving IV fluids at 130 mL an hour. Nephrology is following. Patient was also found to have significant lactic acidosis upon presentation to the hospital with a lactic acid of 8.3. Most recent lactic acid 1.8. Patient was tachycardic yesterday with a heart rate in the 140s. Patient was started on metoprolol. Patient's heart rate right now is controlled in the 80s. Blood pressure 108/73. Patient did receive a dose of IV Lasix overnight per nephrology with minimal urine output. EKG reveals sinus tachycardia. Heart rate 104. T-wave inversions in inferior leads. ST depression noted in precordial leads. Chest xray negative for acute process Laboratory data: WBC 8.8. Hemoglobin 12.8. Platelet count 119. Sodium 141. Potassium 3.9. BUN 88. Creatinine 4.68. BNP 7420. Troponin 0.135. Current home cardiac medications include Lasix 20 mg daily, simvastatin 20 g daily, and hydralazine 50 mg twice a day Most recent echocardiogram performed in September 2019 was a technically difficult study with suboptimal views. LV function appeared fair. Valves were not well visualized. 10/30/2020 Patient examined this morning at the bedside. Patient still is somewhat lethargic, although improved from yesterday. He is able to answer yes or no questions. Patient's creatinine is worse today at 5.47. BUN 102. Nephrology is following. Patient to receive 80 mg Lasix 1 dose. Vascular surgery was also consulted for hemodialysis catheter. Patient's blood pressure 106/69. His metoprolol was decreased yesterday. Midodrine was added yesterday per nephrology. Patient is currently NPO and is supposed to have a swallow evaluation performed today. PHYSICAL EXAM: VITAL SIGNS: Reviewed. GENERAL: Well-developed in no acute distress. HEENT: Head is normocephalic. Pupils are equal, round. Sclerae anicteric. Mucous membranes of the mouth are moist. Neck supple. No JVD or thyromegaly LUNGS: Respirations even and unlabored. Lungs diminished with scattered rhonchi HEART: Regular rate and rhythm. S1 and S2 heard. ABDOMEN: Soft. Nondistended. Nontender. EXTREMITIES: Normal range of motion. No clubbing or cyanosis. Peripheral pulses intact. No lower extremity edema NEUROLOGIC: Patient slightly lethargic at times examination. Patient able to answer yes or no questions. ASSESSMENT: Generalized weakness Shortness of breath Acute renal failure Lactic acidosis Sinus tachycardia Abnormal troponin, may be secondary to acute renal failure, cannot rule out non- STEMI as patient does have EKG changes Hypertension Hyperlipidemia Osteoarthritis Depression Former nicotine dependence PLAN: 2D echo ordered. Await results Nephrology following for acute renal failure Patient to undergo swallow evaluation today Continue current cardiac medications including aspirin, lipitor, metoprolol pending swalloe evaluation Patient to have dialysis catheter placed per vascular Prognosis guarded. Family apparently considering hospice if patient does not improve. He is currently a DNR. Further recommendations pending patient course Nurse practitioner note has been reviewed by physician. Signing provider agrees with the documented findings, assessment, and plan of care. Objective - Vital Signs Vital signs: Vital Signs Temp 99.1 F 10/30/20 07:51 Pulse 64 10/30/20 07:52 Resp 23 10/30/20 07:52 BP 106/69 10/30/20 07:51 Pulse Ox 98 10/30/20 07:51 Intake & Output 10/29/20 10/30/20 10/30/20 18:59 06:59 18:59 Intake Total 480 Output Total 100 Balance 480 -100 Weight 89 kg Intake: Oral 480 Output: Urine 100 Uretheral (Dillard) 100 Other: # Voids 0 0 - Labs CBC & Chem 7: 10/29/20 07:23 10/30/20 08:09 Labs: Abnormal Lab Results - Last 24 Hours (Table) 10/29/20 10/30/20 Range/Units 10:18 08:09 Chloride 108 H (98-107) mmol/L Carbon Dioxide 21 L (22-30) mmol/L BUN 102 H* (9-20) mg/dL Creatinine 5.47 H (0.66-1.25) mg/dL Glucose 143 H (74-99) mg/dL Calcium 8.3 L (8.4-10.2) mg/dL Troponin I 0.088 H* (0.000-0.034) ng/mL
--- NOTE | 2020-10-30 11:17 | ECHOF ---
Referral Reason:LV function MEASUREMENTS -------- HEIGHT: 182.9 cm WEIGHT: 88.9 kg BP: 107/68 FINDINGS -------- Attempted study: TDS even with Lumason. 5.0mg OF Lumason UTLIZED: 2 OR MORE WALL SEGMENTS NOT VISUALIZED. The aortic valve was not well visualized. The mitral valve was not well visualized. The tricuspid valve was not well visualized. The pulmonic valve was not well visualized. CONCLUSIONS -------- 1. Attempted study: TDS even with Lumason. 2. 5.0mg OF Lumason UTLIZED: 2 OR MORE WALL SEGMENTS NOT VISUALIZED. 3. The aortic valve was not well visualized. 4. The mitral valve was not well visualized. 5. The tricuspid valve was not well visualized. 6. The pulmonic valve was not well visualized. ICER MACHINE: Joyce Magallon RDCS
[2020-10-30] MEDS: ASPIRIN 81 MG PO SCH (11:23)
[2020-10-30] MEDS: METOPROLOL TARTRATE 12.5 MG TAB PO SCH ×2 (11:23→21:09)
[2020-10-30] MEDS: MIDODRINE 5 MG TAB PO SCH ×3 (11:23→16:04)
--- NOTE | 2020-10-30 11:58 | P.GSCN ---
History of Present Illness History of present illness: 80-year-old white male, patient has a history of acute chronic renal failure I was consulted for placement of urgent dialysis catheter patient has history of 4 mild dementia Neck examination neck is supple with chest pressure has a crackles bilateral Abdomen soft nontender Vascular brachial radial femoral pulses are present Plan is placement of a dialysis catheter risk and complication discussed Past Medical History Past Medical History: Dementia, Hyperlipidemia, Hypertension Additional Past Medical History / Comment(s): trauma from fall in 2004 History of Any Multi-Drug Resistant Organisms: None Reported Past Surgical History: Back Surgery, Joint Replacement, Orthopedic Surgery Additional Past Surgical History / Comment(s): orthopedic surgeries from trauma, neck, right knee replacemet Past Psychological History: Depression Smoking Status: Former smoker Past Alcohol Use History: None Reported Past Drug Use History: None Reported - Past Family History Father History Unknown: Yes Medications and Allergies Home Medications Medication Instructions Recorded Confirmed Type Escitalopram [Lexapro] 20 mg PO HS 09/15/15 10/27/20 History Furosemide [Lasix] 20 mg PO HS 09/15/15 10/27/20 History Montelukast [Singulair] 10 mg PO HS 09/15/15 10/27/20 History Simvastatin [Zocor] 20 mg PO HS 09/15/15 10/27/20 History hydrALAZINE HCL [Apresoline] 50 mg PO BID@1200,2100 09/30/19 10/27/20 History Megestrol [Megace] 400 mg PO HS 10/27/20 10/27/20 History Allergies Allergy/AdvReac Type Severity Reaction Status Date / Time No Known Allergies Allergy Verified 10/27/20 13:26 Surgical - Exam Vital Signs Temp Pulse Resp BP Pulse Ox 98.3 F 101 H 30 H 105/55 80 L 10/27/20 11:43 10/27/20 11:43 10/27/20 11:43 10/27/20 11:43 10/27/20 11:43 Results - Labs 10/29/20 07:23 10/30/20 08:09 Abnormal Lab Results - Last 24 Hours (Table) 10/30/20 Range/Units 08:09 Chloride 108 H (98-107) mmol/L Carbon Dioxide 21 L (22-30) mmol/L BUN 102 H* (9-20) mg/dL Creatinine 5.47 H (0.66-1.25) mg/dL Glucose 143 H (74-99) mg/dL Calcium 8.3 L (8.4-10.2) mg/dL Diabetes panel 10/30/20 Range/Units 08:09 Sodium 141 (137-145) mmol/L Potassium 3.7 (3.5-5.1) mmol/L Chloride 108 H (98-107) mmol/L Carbon Dioxide 21 L (22-30) mmol/L BUN 102 H* (9-20) mg/dL Creatinine 5.47 H (0.66-1.25) mg/dL Glucose 143 H (74-99) mg/dL Calcium 8.3 L (8.4-10.2) mg/dL Calcium panel 10/30/20 Range/Units 08:09 Calcium 8.3 L (8.4-10.2) mg/dL Pituitary panel 10/30/20 Range/Units 08:09 Sodium 141 (137-145) mmol/L Potassium 3.7 (3.5-5.1) mmol/L Chloride 108 H (98-107) mmol/L Carbon Dioxide 21 L (22-30) mmol/L BUN 102 H* (9-20) mg/dL Creatinine 5.47 H (0.66-1.25) mg/dL Glucose 143 H (74-99) mg/dL Calcium 8.3 L (8.4-10.2) mg/dL Adrenal panel 10/30/20 Range/Units 08:09 Sodium 141 (137-145) mmol/L Potassium 3.7 (3.5-5.1) mmol/L Chloride 108 H (98-107) mmol/L Carbon Dioxide 21 L (22-30) mmol/L BUN 102 H* (9-20) mg/dL Creatinine 5.47 H (0.66-1.25) mg/dL Glucose 143 H (74-99) mg/dL Calcium 8.3 L (8.4-10.2) mg/dL
[2020-10-30] MEDS ORDERED: LIDOCAINE 1% INJ 10MG/ML (20 ML MDV) SQ ONE (12:14)
[2020-10-30] MEDS ORDERED: IOPAMIDOL-250 50ML BTL INTRAARTER ONE (12:28)
--- NOTE | 2020-10-30 13:20 | P.WCPCN ---
Wound Center Open Debridement Procedure note preoperative diagnoses is acute chronic renal failure Postero-same Procedure ultrasound-guided 20 same dialysis catheter placed right femoral approach ultrasound guided Procedure patient brought to the Office Equipment Mechanic right groin was prepped and draped applied sterile manner. 1% lidocaine were infiltrated ultrasound-guided micropuncture introduced right femoral vein. Guidewire was passed and 4-Kiswahili sheath advanced top the guidewire. Thrill through the sheath we did do dialysis catheter by placing a guidewire and dilator was advanced on the top of guidewire then we placed 30 same dialysis catheter tip of the catheter isn't inferior vena cava flushed with heparin saline and Hep-Lock and secured with 3-0 nylon dressing applied patient for the procedure well and transferred to the room in satisfactory condition
--- NOTE | 2020-10-30 13:55 | P.PCN ---
Description of Procedure: Preop diagnoses is acute chronic renal failure Postoperative is same Procedure patient brought to the Payroll Assistant right groin was prepped and draped applied usual sterile manner ultrasound-guided micropuncture i needed introduced to the right femoral vein, after that we placed a guidewire on the then replaced a 4-Slovak sheath the top of guidewire then we passed a regular guidewire. Dilator were advanced top the guidewire. Then we placed 20 same dialysis catheter on the top of guidewire guidewire was removed flushed with heparin saline and Hep-Lock secured with 3-0 nylon dressing applied patient are to the procedure well and transferred to the room in satisfactory condition
--- NOTE | 2020-10-30 14:33 | IR ---
EXAMINATION TYPE: IR cvc insert non tunneled DATE OF EXAM: 10/30/2020 COMPARISON: NONE HISTORY: Renal failure Fluoroscopy support supplied to the referring clinician. See dictated report from vascular surgery, 3.5 minutes fluoroscopy time, 87 intraoperative C-arm images document the procedure
[2020-10-30 16:55] LABS: Glucose,Whole Blood 107 mg/dL (75-99)
[2020-10-30 19:20] LABS: Hepatitis B Surface AB- Quant <3.5 mIU/mL; Hepatitis B Surface Antibody Non-Reactive (Non-Reactive); Hepatitis B Surface Antigen Non-Reactive (Non-Reactive)
[2020-10-30] MEDS: ATORVASTATIN 40 MG TAB PO SCH (21:09)
[2020-10-31] MEDS: SODIUM CHLORIDE 0.9% 1,000 ML IV SCH (05:05)
[2020-10-31] MEDS: MIDODRINE 5 MG TAB PO SCH ×3 (05:51→15:14)
[2020-10-31] MEDS: ASPIRIN 81 MG PO SCH (07:19)
[2020-10-31] MEDS: METOPROLOL TARTRATE 12.5 MG TAB PO SCH (07:19)
[2020-10-31 07:44] LABS: Anisocytosis Slight; HCT 32.4 % (39.0-53.0); MCH 31.1 pg (25.0-35.0); MCHC 34.1 g/dL (31.0-37.0); MCV 91.2 fL (80.0-100.0); Mean Platelet Volume 8.9; RBC 3.55 m/uL (4.30-5.90); RDW 16.6 % (11.5-15.5); WBC 3.4 k/uL (3.8-10.6)
--- NOTE | 2020-10-31 08:28 | P.PN ---
Subjective Principal diagnosis: Bilateral pneumonia with acute renal failure and elevated troponin. The patient is currently undergoing dialysis but he's had difficulty with by mouth intake. The patient is a 80-year-old white male who struggles with end-stage dementia. He is admitted secondary to significant weight loss and poor by mouth intake. He is lost about 40 pounds in last 6 months. He comes in with significant weakness bilateral pneumonia with acute renal failure. Appreciate multiple consultants input. Poor historian otherwise. Long discussion with the care team and I have suggested probable hospice. Objective - Vital Signs Vital signs: Vital Signs Temp 98.8 F 10/31/20 07:52 Pulse 65 10/31/20 07:54 Resp 20 10/31/20 07:54 BP 107/63 10/31/20 07:52 Pulse Ox 100 10/31/20 07:52 Intake & Output 10/30/20 10/31/20 10/31/20 18:59 06:59 18:59 Intake Total 0 100 0 Output Total 400 850 Balance -400 -750 0 Weight 96.5 kg Intake: Intake, IV Titration 100 Amount Piperacillin-Tazobactam 3 100 .375 gm In Sodium Chloride 0.9% 100 ml @ 25 mls/hr IVPB Q12H [facility] Rx# :[id number] Oral 0 0 Output: Urine 400 850 Uretheral (Dillard) 100 Hemodialysis 0 Other: Voiding Method Indwelling Catheter Indwelling Catheter Indwelling Catheter # Voids 1 - Constitutional General appearance: Present: no acute distress, obese - EENT Eyes: Absent: abnormal pupil - Neck Neck: Absent: lymphadenopathy - Respiratory Respiratory: bilateral: CTA - Cardiovascular Rhythm: regular Heart sounds: normal: S1, S2 Abnormal Heart Sounds: Absent: S3 Gallop - Gastrointestinal General gastrointestinal: Present: soft. Absent: tenderness - Neurologic Neurologic: Present: CNII-XII intact - Musculoskeletal Musculoskeletal: Present: generalized weakness - Labs CBC & Chem 7: 10/31/20 07:09 10/30/20 08:09 Labs: Abnormal Lab Results - Last 24 Hours (Table) 10/30/20 10/30/20 10/31/20 Range/Units 08:09 16:53 07:09 WBC 3.4 L (3.8-10.6) k/uL RBC 3.55 L (4.30-5.90) m/uL Hgb 11.0 L (13.0-17.5) gm/dL Hct 32.4 L (39.0-53.0) % RDW 16.6 H (11.5-15.5) % Chloride 108 H (98-107) mmol/L Carbon Dioxide 21 L (22-30) mmol/L BUN 102 H* (9-20) mg/dL Creatinine 5.47 H (0.66-1.25) mg/dL Glucose 143 H (74-99) mg/dL POC Glucose (mg/dL) 107 H (75-99) mg/dL Calcium 8.3 L (8.4-10.2) mg/dL Assessment and Plan (1) ARF (acute renal failure) Current Visit: Yes Status: Acute Code(s): N17.9 - ACUTE KIDNEY FAILURE, UNSPECIFIED SNOMED Code(s): 02586782 (2) NSTEMI (non-ST elevated myocardial infarction) Current Visit: Yes Status: Acute Code(s): I21.4 - NON-ST ELEVATION (NSTEMI) MYOCARDIAL INFARCTION SNOMED Code(s): 55070143 (3) Alzheimer's dementia Current Visit: No Status: Acute Code(s): G30.9 - ALZHEIMER'S DISEASE, UNSPECIFIED; F02.80 - DEMENTIA IN OTH DISEASES CLASSD ELSWHR W/O BEHAVRL DISTURB SNOMED Code(s): 98330819 (4) Confusion Current Visit: No Status: Acute Code(s): R41.0 - DISORIENTATION, UNSPECIFIED SNOMED Code(s): 059551590 (5) Hyperlipidemia Current Visit: No Status: Acute Code(s): E78.5 - HYPERLIPIDEMIA, UNSPECIFIED SNOMED Code(s): 81506715 (6) Hypertension Current Visit: No Status: Acute Code(s): I10 - ESSENTIAL (PRIMARY) HYPERTENSION SNOMED Code(s): 00314586 Plan: Continue supportive care. Question element of discharge planning. Dietary intake issue related to memory and generalized weakness. Appreciate nephrology input. Check CBC and CMP in a.m. Prognosis is poor I suspect given his overall prognosis, that he would be a appropriate hospice candidate. He is unable to comprehend by mouth intake. Unless the family di ctates otherwise, a feeding tube would be in many ways somewhat cruel Time with Patient: Greater than 30
[2020-10-31 08:37] LABS: Albumin 2.4 g/dL (3.5-5.0); Calcium 7.9 mg/dL (8.4-10.2); Total Bilirubin 1.1 mg/dL (0.2-1.3)
[2020-10-31 08:59] LABS: Platelet Count 70 k/uL (150-450)
[2020-10-31] MEDS ORDERED: POTASSIUM CHLORIDE ER 20 MEQ TAB.ER PO STA (09:23)
[2020-10-31] MEDS ORDERED: Potassium Replacement Protocol 1 EACH MISC MISCELLANE PRN (09:30)
--- NOTE | 2020-10-31 10:00 | P.PN ---
Subjective Patient is seen in follow-up for acute kidney injury. Started on hemodialysis 10/30/2020 due to worsening renal function and oliguria. Patient is not a reliable historian due to dementia. Blood pressure has been running low. Unable to take oral meds. Vital signs: Blood pressure low. General: The patient appeared well nourished and normally developed. HEENT: Head exam is unremarkable. On nasal cannula. LUNGS: Breath sounds decreased. HEART: Rate and Rhythm are regular. ABDOMEN: Soft, no distention. EXTREMITITES: Trace edema. Objective - Vital Signs Vital signs: Vital Signs Temp 98.8 F 10/31/20 07:52 Pulse 65 10/31/20 07:54 Resp 20 10/31/20 07:54 BP 107/63 10/31/20 07:52 Pulse Ox 100 10/31/20 07:52 Intake & Output 10/30/20 10/31/20 10/31/20 18:59 06:59 18:59 Intake Total 0 100 0 Output Total 400 850 Balance -400 -750 0 Weight 96.5 kg Intake: Intake, IV Titration 100 Amount Piperacillin-Tazobactam 3 100 .375 gm In Sodium Chloride 0.9% 100 ml @ 25 mls/hr IVPB Q12H [facility] Rx# :[id number] Oral 0 0 Output: Urine 400 850 Uretheral (Dillard) 100 Hemodialysis 0 Other: Voiding Method Indwelling Catheter Indwelling Catheter Indwelling Catheter # Voids 1 - Labs CBC & Chem 7: 10/31/20 07:09 10/31/20 07:09 Labs: Abnormal Lab Results - Last 24 Hours (Table) 10/30/20 10/31/20 10/31/20 Range/Units 16:53 07:09 07:09 WBC 3.4 L (3.8-10.6) k/uL RBC 3.55 L (4.30-5.90) m/uL Hgb 11.0 L (13.0-17.5) gm/dL Hct 32.4 L (39.0-53.0) % RDW 16.6 H (11.5-15.5) % Plt Count 70 L (150-450) k/uL Potassium 3.0 L (3.5-5.1) mmol/L Chloride 111 H (98-107) mmol/L BUN 71 H (9-20) mg/dL Creatinine 3.57 H (0.66-1.25) mg/dL Glucose 101 H (74-99) mg/dL POC Glucose (mg/dL) 107 H (75-99) mg/dL Calcium 7.9 L (8.4-10.2) mg/dL AST 135 H (17-59) U/L Total Protein 5.0 L (6.3-8.2) g/dL Albumin 2.4 L (3.5-5.0) g/dL Assessment and Plan Plan: Assessment: 1. Acute kidney injury secondary to ATN secondary to hypotension. Started on hemodialysis due to oliguria and worsening renal function. Creatinine was 0.8 in March 2020. No hydronephrosis noted on kidney ultrasound. UA fairly benign. 2. Metabolic acidosis secondary to acute kidney injury. Improved with bicarbonate drip. 3. Hypokalemia from poor intake. 4. Pneumonia maintained on antibiotics. 5. Dementia. Plan: Status post 80 mg IV Lasix October 30. Urine output documented is 1.2 L in the last 24 hours. Currently seen while undergoing hemodialysis. Maintain Dillard catheter. Strict is and os. Check cortisol level. Replace potassium. Once blood pressure stabilizes, will repeat Lasix 80 mg IV once. Hospice being considered.
--- NOTE | 2020-10-31 10:37 | P.PN ---
Subjective Progress Note Date: 10/31/20 HISTORY OF PRESENT ILLNESS: This is a 80-year-old male with a past medical history significant for dementia, hyperlipidemia, hypertension, and osteoarthritis, depression, and former nicotine dependence. 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 We have been asked to see the patient in consultation for tachycardia. Patient examined at the bedside. Patient apparently presented to the hospital secondary to weakness and shortness of breath. It is noted the patient has a history of dementia and he is a poor historian. Patient is unable to recall the reason why he came to the hospital. At the time of my examination, he denies chest pain or pressure. He denies shortness of breath. Patient was found to be in acute renal failure. He has been receiving IV fluids at 130 mL an hour. Nephrology is following. Patient was also found to have significant lactic acidosis upon presentation to the hospital with a lactic acid of 8.3. Most recent lactic acid 1.8. Patient was tachycardic yesterday with a heart rate in the 140s. Patient was started on metoprolol. Patient's heart rate right now is controlled in the 80s. Blood pressure 108/73. Patient did receive a dose of IV Lasix overnight per nephrology with minimal urine output. EKG reveals sinus tachycardia. Heart rate 104. T-wave inversions in inferior leads. ST depression noted in precordial leads. Chest xray negative for acute process Laboratory data: WBC 8.8. Hemoglobin 12.8. Platelet count 119. Sodium 141. Potassium 3.9. BUN 88. Creatinine 4.68. BNP 7420. Troponin 0.135. Current home cardiac medications include Lasix 20 mg daily, simvastatin 20 g daily, and hydralazine 50 mg twice a day Most recent echocardiogram performed in September 2019 was a technically difficult study with suboptimal views. LV function appeared fair. Valves were not well visualized. 10/30/2020 Patient examined this morning at the bedside. Patient still is somewhat lethargic, although improved from yesterday. He is able to answer yes or no questions. Patient's creatinine is worse today at 5.47. BUN 102. Nephrology is following. Patient to receive 80 mg Lasix 1 dose. Vascular surgery was also consulted for hemodialysis catheter. Patient's blood pressure 106/69. His metoprolol was decreased yesterday. Midodrine was added yesterday per nephrology. Patient is currently NPO and is supposed to have a swallow evaluation performed today. 10/31/2020 Patient examined this morning at the bedside. Patient denies chest pain or pressure. He denies shortness of breath. Patient had right femoral hemodialysis catheter placed yesterday. Dialysis nurse at the bedside and states patient underwent infiltration yesterday. He is currently receiving hemodialysis this morning. Per the dialysis nurse, the patient had 500 mL removed and then became hypotensive with a systolic blood pressure in the 60s. She states she is continuing only with ultrafiltration for this treatment. Patient's creatinine down to 3.57 today. Patient's blood pressure is stable at this time with a recent reading of 107/63. Telemetry reveals sinus mechanism in the 60s. He is on 2 L nasal cannula with oxygen saturations greater than 92%. He is afebrile. Echocardiogram was attempted but was not able to be completed due to non-visualization of cardiac structures. PHYSICAL EXAM: VITAL SIGNS: Reviewed. GENERAL: Well-developed in no acute distress. HEENT: Head is normocephalic. Pupils are equal, round. Sclerae anicteric. Mucous membranes of the mouth are moist. Neck supple. No JVD or thyromegaly LUNGS: Respirations even and unlabored. Lungs diminished with scattered rhonchi HEART: Regular rate and rhythm. S1 and S2 heard. ABDOMEN: Soft. Nondistended. Nontender. EXTREMITIES: Normal range of motion. No clubbing or cyanosis. Peripheral pulses intact. No lower extremity edema NEUROLOGIC: Patient slightly lethargic at times examination. Patient able to answer yes or no questions. ASSESSMENT: Generalized weakness Shortness of breath Acute renal failure Lactic acidosis Sinus tachycardia Abnormal troponin, may be secondary to acute renal failure, cannot rule out non- STEMI as patient does have EKG changes Hypertension Hyperlipidemia Osteoarthritis Depression Former nicotine dependence PLAN: Nephrology following for acute renal failure. Hemodialysis per nephrology Continue current cardiac medications including aspirin, lipitor, metoprolol when able. Patient currently nothing by mouth secondary to failed swallow study yesterday. Prognosis guarded. Family apparently considering hospice if patient does not improve. He is currently a DNR. Further recommendations pending patient course Nurse practitioner note has been reviewed by physician. Signing provider agrees with the documented findings, assessment, and plan of care. Objective - Vital Signs Vital signs: Vital Signs Temp 98.8 F 10/31/20 07:52 Pulse 65 10/31/20 07:54 Resp 20 10/31/20 07:54 BP 107/63 10/31/20 07:52 Pulse Ox 100 10/31/20 07:52 Intake & Output 10/30/20 10/31/20 10/31/20 18:59 06:59 18:59 Intake Total 0 100 0 Output Total 400 850 Balance -400 -750 0 Weight 96.5 kg Intake: Intake, IV Titration 100 Amount Piperacillin-Tazobactam 3 100 .375 gm In Sodium Chloride 0.9% 100 ml @ 25 mls/hr IVPB Q12H [facility] Rx# :[id number] Oral 0 0 Output: Urine 400 850 Uretheral (Dillard) 100 Hemodialysis 0 Other: Voiding Method Indwelling Catheter Indwelling Catheter Indwelling Catheter # Voids 1 - Labs CBC & Chem 7: 10/31/20 07:09 10/31/20 07:09 Labs: Abnormal Lab Results - Last 24 Hours (Table) 10/30/20 10/31/20 10/31/20 Range/Units 16:53 07:09 07:09 WBC 3.4 L (3.8-10.6) k/uL RBC 3.55 L (4.30-5.90) m/uL Hgb 11.0 L (13.0-17.5) gm/dL Hct 32.4 L (39.0-53.0) % RDW 16.6 H (11.5-15.5) % Plt Count 70 L (150-450) k/uL Potassium 3.0 L (3.5-5.1) mmol/L Chloride 111 H (98-107) mmol/L BUN 71 H (9-20) mg/dL Creatinine 3.57 H (0.66-1.25) mg/dL Glucose 101 H (74-99) mg/dL POC Glucose (mg/dL) 107 H (75-99) mg/dL Calcium 7.9 L (8.4-10.2) mg/dL AST 135 H (17-59) U/L Total Protein 5.0 L (6.3-8.2) g/dL Albumin 2.4 L (3.5-5.0) g/dL Microbiology - Last 24 Hours (Table) 10/30/20 08:09 Blood Culture - Preliminary Blood No Growth after 24 hours
[2020-10-31] MEDS: FAMOTIDINE 20 MG/2 ML VIAL IV SCH ×2 (10:51→20:47)
[2020-10-31] MEDS: HEPARIN SODIUM,PORCINE/PF 5,000 UNIT/0.5 ML SYRINGE SQ SCH (10:52)
[2020-10-31] MEDS: POTASSIUM CHLORIDE 10 MEQ in WATER FOR INJECTION 1 100ML.BAG IVPB SCH ×4 (10:54→15:37)
[2020-10-31] MEDS: PIPERACILLIN-TAZOBACTAM 3.375 GM in SODIUM CHLORIDE 0.9% 100 ML IVPB SCH (11:19)
[2020-11-01] MEDS: SODIUM CHLORIDE 0.9% 1,000 ML IV SCH (00:34)
[2020-11-01] MEDS: MORPHINE SULFATE 4 MG/ML SYRINGE IV PRN (06:40)
--- NOTE | 2020-11-01 07:17 | XR ---
EXAMINATION TYPE: XR chest 1V DATE OF EXAM: 11/01/2020 COMPARISON: 10/29/2020 HISTORY: Short of breath TECHNIQUE: Single frontal view of the chest is obtained. FINDINGS: There is no focal air space opacity, pleural effusion, or pneumothorax seen. The cardiac silhouette size is within normal limits. The osseous structures are intact. IMPRESSION: No acute process.
[2020-11-01] MEDS: FAMOTIDINE 20 MG/2 ML VIAL IV SCH ×2 (07:56→22:16)
[2020-11-01 07:58] VITALS: BP 103/56; TEMP 98.8
--- NOTE | 2020-11-01 08:16 | P.PN ---
Subjective Principal diagnosis: Bilateral pneumonia with acute renal failure and elevated troponin. The patient is currently undergoing dialysis but he's had difficulty with by mouth intake. The patient is a 80-year-old white male who struggles with end-stage dementia. He is admitted secondary to significant weight loss and poor by mouth intake. He is lost about 40 pounds in last 6 months. He comes in with significant weakness bilateral pneumonia with acute renal failure. Appreciate multiple consultants input. Poor historian otherwise. The patient's and I had a discussion yesterday and we have agreed to consider comfort care/hospice measures. Objective - Vital Signs Vital signs: Vital Signs Temp 98.8 F 11/01/20 07:56 Pulse 150 H 11/01/20 07:59 Resp 42 H 11/01/20 07:59 BP 103/56 11/01/20 07:56 Pulse Ox 96 11/01/20 07:56 Intake & Output 10/31/20 11/01/20 11/01/20 18:59 06:59 18:59 Intake Total 0 Output Total 275 260 Balance -275 -260 Weight 81 kg Intake: Oral 0 Output: Urine 275 260 Hemodialysis 0 Other: Voiding Method Indwelling Catheter Indwelling Catheter Indwelling Catheter # Bowel Movements 1 - Constitutional General appearance: Present: no acute distress, obese - EENT Eyes: Absent: abnormal pupil - Neck Neck: Absent: lymphadenopathy - Respiratory Respiratory: bilateral: diminished - Cardiovascular Rhythm: irregularly irregular Heart sounds: normal: S1, S2 Abnormal Heart Sounds: Absent: S3 Gallop - Gastrointestinal General gastrointestinal: Present: soft. Absent: tenderness - Musculoskeletal Musculoskeletal: Present: generalized weakness - Psychiatric Psychiatric: Absent: A&O x's 3, appropriate affect, intact judgment & insight - Labs CBC & Chem 7: 10/31/20 07:09 10/31/20 07:09 Labs: Abnormal Lab Results - Last 24 Hours (Table) 10/31/20 10/31/20 Range/Units 07:09 07:09 Plt Count 70 L (150-450) k/uL Potassium 3.0 L (3.5-5.1) mmol/L Chloride 111 H (98-107) mmol/L BUN 71 H (9-20) mg/dL Creatinine 3.57 H (0.66-1.25) mg/dL Glucose 101 H (74-99) mg/dL Calcium 7.9 L (8.4-10.2) mg/dL AST 135 H (17-59) U/L Total Protein 5.0 L (6.3-8.2) g/dL Albumin 2.4 L (3.5-5.0) g/dL Microbiology - Last 24 Hours (Table) 10/30/20 08:09 Blood Culture - Preliminary Blood No Growth after 24 hours Assessment and Plan (1) ARF (acute renal failure) Current Visit: Yes Status: Acute Code(s): N17.9 - ACUTE KIDNEY FAILURE, UNSPECIFIED SNOMED Code(s): 29800614 (2) NSTEMI (non-ST elevated myocardial infarction) Current Visit: Yes Status: Acute Code(s): I21.4 - NON-ST ELEVATION (NSTEMI) MYOCARDIAL INFARCTION SNOMED Code(s): 95311398 (3) Alzheimer's dementia Current Visit: No Status: Acute Code(s): G30.9 - ALZHEIMER'S DISEASE, UNSPECIFIED; F02.80 - DEMENTIA IN OTH DISEASES CLASSD ELSWHR W/O BEHAVRL DISTURB SNOMED Code(s): 48906080 (4) Confusion Current Visit: No Status: Acute Code(s): R41.0 - DISORIENTATION, UNSPECIFIED SNOMED Code(s): 370078803 (5) Hyperlipidemia Current Visit: No Status: Acute Code(s): E78.5 - HYPERLIPIDEMIA, UNSPECIFIED SNOMED Code(s): 58540890 (6) Hypertension Current Visit: No Status: Acute Code(s): I10 - ESSENTIAL (PRIMARY) HYPERTENSION SNOMED Code(s): 95002657 Plan: The patient will be placed on comfort care measures as of today. Hospice arrangements will be ascertained for today. Prognosis is poor.
[2020-11-01] MEDS ORDERED: ATROPINE OPHTH SOLN 1% 5ML BTL SUBLINGUAL PRN (08:32)
[2020-11-01] MEDS ORDERED: MORPHINE SULFATE (100 MG/2 ML) 100 MG in SODIUM CHLORIDE 0.9% 100 ML IV SCH (08:45)
[2020-11-01] MEDS ORDERED: SCOPOLAMINE 1.5MG/72HR PATCH TRANSDERM SCH (09:00)
[2020-11-01 22:48] VITALS: PULSE 52; RESP 24
--- NOTE | 2020-11-14 08:01 | P.DS ---
Providers Date of admission: 10/27/20 13:32 Attending physician: Uriel Foote Consults: 10/28/20 11:04 Consult Physician Routine Consulting Provider: Ze Mcmahon Consult Reason/Comments: tachycardia Do you want consulting provider notified?: Yes 10/28/20 11:18 Consult Physician Urgent Consulting Provider: Julia Cunningham Consult Reason/Comments: roland Do you want consulting provider notified?: Yes 10/30/20 09:52 Consult Physician Urgent Consulting Provider: Catrachito Schroeder Consult Reason/Comments: dialysis catheter placement Do you want consulting provider notified?: Yes Primary care physician: Uriel Foote - Discharge Diagnosis(es) (1) ARF (acute renal failure) Status: Acute (2) NSTEMI (non-ST elevated myocardial infarction) Status: Acute (3) Alzheimer's dementia Status: Acute (4) Confusion Status: Acute (5) Hyperlipidemia Status: Acute (6) Hypertension Status: Acute Hospital Course: This is a summary a 80-year-old white male essentially admitted for appropriate renal failure with pneumonia. The patient underlying history of end-stage dementia and had poor by mouth intake. After having significant issues with stabilization, he still did not significantly improved by mouth intake after having appropriate nephrology consult with dialysis. His mental state continue to decline and after significant evaluation, he was placed on hospice and comfort care. The patient peacefully during this time. Patient Condition at Discharge: Serious Plan - Discharge Summary Discharge Rx Participant: Yes New Discharge Prescriptions: No Action Simvastatin [Zocor] 20 mg PO HS Montelukast [Singulair] 10 mg PO HS Furosemide [Lasix] 20 mg PO HS Escitalopram [Lexapro] 20 mg PO HS hydrALAZINE HCL [Apresoline] 50 mg PO BID@1200,2100 Megestrol [Megace] 400 mg PO HS Discharge Medication List Escitalopram [Lexapro] 20 mg PO HS 09/15/15 [History] Furosemide [Lasix] 20 mg PO HS 09/15/15 [History] Montelukast [Singulair] 10 mg PO HS 09/15/15 [History] Simvastatin [Zocor] 20 mg PO HS 09/15/15 [History] hydrALAZINE HCL [Apresoline] 50 mg PO BID@1200,2100 09/30/19 [History] Megestrol [Megace] 400 mg PO HS 10/27/20 [History] Follow up Appointment(s)/Referral(s): Uriel Foote MD [Primary Care Provider] - 1-2 days Discharge Disposition: - Preliminary Cause of Preliminary Cause of : Severe acute renal failure with dementia
--- NOTE | 2020-11-24 13:02 | CDI ---
Documentation Clarification Form Date: 11/24/2020 12:48:26 PM From: Janis AguirreGriffithsJAQUELINE martinez, CCDS Admit Date: 10/27/2020 01:32:00 PM Patient Name: Shade Terry Visit Number: [id number] Discharge Date: 11/01/2020 11:01:00 PM ATTENTION: The Clinical Documentation Specialists (CDI) and [facility] Coding Staff appreciate your assistance in clarifying documentation. Please respond to the clarification below the line at the bottom and electronically sign. The CDI & [facility] Coding staff will review the response and follow-up if needed. Please note: Queries are made part of the Legal Health Record. If you have any questions, please contact the author of this message via ITS. Dr. Uriel Foote: Your patient has the documented diagnosis of unspecified CHF in the 10/26 ED Note. Additional information regarding the Type & Acuity of CHF is requested. History/Risk Factors per the 10/27 ED Note: Dementia, Hyperlipidemia, Hypertension, Depression, Former smoker. Clinical Indicators: Presented to the ED on 10/27 via EMS with SOB, Altered Mental Status & weakness. ED Clinical Impression: CHF, NSTEMI, Lactic Acidosis, Acute Renal Failure Patient was made No Code by his in the ED. 10/27 ED Note: No pedal edema 10/30 Nephrology PN: Trace pedal edema 10/27 VS: T 98.3, P 101, R 30 (SOB, labored, Shallow, Tachypnea), BP 105/55, PO 80 RA - 90 15% nrb 10/27 LAB: PT 16.1, INR 1.6, K 3.4, CO2 12, BUN 75, Cr 4.70, Glucose 192, Lactic Acid 8.3, 2.5, 2.2; Troponin 0.135, BNP 7420 10/27 CXR: Elevation of the left hemidiaphragm. 10/28 CXR: No acute pulmonary process. 10/27 EKG: R 104 Sinus tachycardia, ST & T wave abnormality, consider inferolateral ischemia, abnormal EKG. 10/30 ECHO: Attempted study. Incomplete. Previous ECHO 10/01/2019: Technically difficult study, attempted, limited. No impression/conclusion. Treatment 10/27: IV Na Cl 1,000 mls @ 999 mls/hr q1H, IV Na Cl 500 mls @ 999 mls/hr q31M, IV Na Cl 1,000 mls @ 130 mls/hr q7H, IV Ativan 0.5 mg q6H, IV Morphine 4 mg q4H, IV Zofran 4 mg q6H, IV Pepcid 10 mg q12H, Heparin sq q12H. 10/29: IV Lasix 60 mg x1, IV Zosyn, IV Dextrose/Water w/Na Bicarb. 10/30: IV Lasix 80 mg x1, IV Na Cl 1,000 mls @ 60 mls/hr q20H Home meds include po Lasix 20 mg Daily In your professional opinion, can you please clarify the Acuity & Type of CHF if known? [ x ] Acute Systolic Heart Failure [ ] Chronic Systolic Heart Failure [ ] Acute on Chronic Systolic Heart Failure [ ] Acute Diastolic Heart Failure [ ] Chronic Diastolic Heart Failure [ ] Acute on Chronic Diastolic Heart Failure [ ] Acute Systolic & Diastolic Heart Failure [ ] Chronic Systolic & Diastolic Heart Failure [ ] Acute on Chronic Heart Failure Systolic & Diastolic Heart Failure [ ] CHF is ruled out [ ] Other, please specify [ ] Unable to determine (Template Last Revised: May 2020) MTDD
--- NOTE | 2020-11-24 13:12 | CDI ---
Documentation Clarification Form Date: 11/24/2020 01:05:00 PM From: Janis Griffiths CCS, CCDS Admit Date: 10/27/2020 01:32:00 PM Patient Name: Shade Terry Visit Number: [id number] Discharge Date: 11/01/2020 11:01:00 PM ATTENTION: The Clinical Documentation Specialists (CDI) and [facility] Coding Staff appreciate your assistance in clarifying documentation. Please respond to the clarification below the line at the bottom and electronically sign. The CDI & [facility] Coding staff will review the response and follow-up if needed. Please note: Queries are made part of the Legal Health Record. If you have any questions, please contact the author of this message via ITS. Dr. Julia Cunningham: CKD without further specificity is documented in the Vascular Surgeon's notes on 10/30. Additional clarification regarding the stage of CKD is requested. History/Risk Factors per the 10/27 ED Note: Dementia, Hyperlipidemia, Hypertension, Depression, Former smoker. Clinical Indicators: Presented to the ED on 10/27 via EMS with SOB, Altered Mental Status & weakness. ED Clinical Impression: CHF, NSTEMI, Lactic Acidosis, Acute Renal Failure Patient was made No Code by his in the ED. 10/29 Nephrology Consult: HILL, ATN with urine output, currently on the low side. Etiology hypotension. IV Lasix given to help with urine output, possible dialysis. 10/27 VS: T 98.3, P 101, R 30 (SOB, labored, Shallow, Tachypnea), BP 105/55, PO 80 RA - 90 15% nrb 10/27 LAB: PT 16.1, INR 1.6, K 3.4, CO2 12, BUN 75, Cr 4.70, Glucose 192, Lactic Acid 8.3, 2.5, 2.2; Troponin 0.135, BNP 7420 10/27 GFR: 11. 10/30 GFR: 9. 10/31 GFR: 15 Historical GFR: 03/19/2020: 85.6. 10/02/2019 72 Treatment 10/27: IV Na Cl 1,000 mls @ 999 mls/hr q1H, IV Na Cl 500 mls @ 999 mls/hr q31M, IV Na Cl 1,000 mls @ 130 mls/hr q7H, IV Ativan 0.5 mg q6H, IV Morphine 4 mg q4H, IV Zofran 4 mg q6H, IV Pepcid 10 mg q12H, Heparin sq q12H. 10/29: IV Lasix 60 mg x1, IV Zosyn, IV Dextrose/Water w/Na Bicarb. 10/30: IV Lasix 80 mg x1, IV Na Cl 1,000 mls @ 60 mls/hr q20H 10/30 Hemodialysis catheter placed & Hemodialysis started. Please clarify the stage of the CKD, if known: [ ] CKD Stage 2 (GFR 60-89) [ ] CKD Stage 3 (GFR 30-59) [ ] CKD Stage 3a (GFR 45-59) [ ] CKD Stage 3b (GFR 30-44) [ ] CKD Stage 4 (GFR 15-29) [ ] CKD Stage 5 (GFR <15) [ ] Other, please specify [ ] Unable to determine (Template Last revised: May 2020) stage 2 MTDD
--- NOTE | 2020-11-24 13:21 | CDI ---
Documentation Clarification Form Date: 11/24/2020 01:17:00 PM From: Janis Griffiths CCS, CCDS Admit Date: 10/27/2020 01:32:00 PM Patient Name: Shade Terry Visit Number: [id number] Discharge Date: 11/01/2020 11:01:00 PM ATTENTION: The Clinical Documentation Specialists (CDI) and [facility] Coding Staff appreciate your assistance in clarifying documentation. Please respond to the clarification below the line at the bottom and electronically sign. The CDI & [facility] Coding staff will review the response and follow-up if needed. Please note: Queries are made part of the Legal Health Record. If you have any questions, please contact the author of this message via ITS. Dr. Uriel Foote: NSTEMI is documented in the 10/27 ED Note and the 11/14 Discharge Summary. Per the Cardiology Consult: Abnormal troponin, may be secondary to acute renal failure, cannot rule out non- STEMI as patient does have EKG changes. Additional clarification regarding the type of DE is requested. History/Risk Factors per the 10/27 ED Note: Dementia, Hyperlipidemia, Hypertension, Depression, Former smoker. Clinical Indicators: Presented to the ED on 10/27 via EMS with SOB, Altered Mental Status & weakness. ED Clinical Impression: CHF, NSTEMI, Lactic Acidosis, Acute Renal Failure Patient was made No Code by his in the ED. 10/27 VS: T 98.3, P 101, R 30 (SOB, labored, Shallow, Tachypnea), BP 105/55, PO 80 RA - 90 15% nrb 10/27 LAB: PT 16.1, INR 1.6, K 3.4, CO2 12, BUN 75, Cr 4.70, Glucose 192, Lactic Acid 8.3, 2.5, 2.2; Troponin 0.135, BNP 7420 10/27 CXR: Elevation of the left hemidiaphragm. 10/28 CXR: No acute pulmonary process. 10/27 EKG: R 104 Sinus tachycardia, ST & T wave abnormality, consider inferolateral ischemia, abnormal EKG. 10/30 ECHO: Attempted study. Incomplete. Previous ECHO 10/01/2019: Technically difficult study, attempted, limited. No impression/conclusion. Treatment 10/27: IV Na Cl 1,000 mls @ 999 mls/hr q1H, IV Na Cl 500 mls @ 999 mls/hr q31M, IV Na Cl 1,000 mls @ 130 mls/hr q7H, IV Ativan 0.5 mg q6H, IV Morphine 4 mg q4H, IV Zofran 4 mg q6H, IV Pepcid 10 mg q12H, Heparin sq q12H. IV Heparin drip ordered but not given. 10/29: IV Lasix 60 mg x1, IV Zosyn, IV Dextrose/Water w/Na Bicarb. 10/30: IV Lasix 80 mg x1, IV Na Cl 1,000 mls @ 60 mls/hr q20H Please clarify the type of DE, if known: [ x ] NSTEMI (type 1) [ ] Type II DE due to (please specify etiology) [ ] NSTEMI ruled out [ ] Unable to determine [ ] Other Condition, please specify (Template Last Revised: June 2020) MTDD
--- NOTE | 2020-11-24 13:31 | CDI ---
Documentation Clarification Form Date: 11/24/2020 01:24:00 PM From: Janis Griffiths CCS, CCDS Admit Date: 10/27/2020 01:32:00 PM Patient Name: Shade Terry Visit Number: [id number] Discharge Date: 11/01/2020 11:01:00 PM ATTENTION: The Clinical Documentation Specialists (CDI) and [facility] Coding Staff appreciate your assistance in clarifying documentation. Please respond to the clarification below the line at the bottom and electronically sign. The CDI & [facility] Coding staff will review the response and follow-up if needed. Please note: Queries are made part of the Legal Health Record. If you have any questions, please contact the author of this message via ITS. Dr. Uriel Foote: Sepsis is documented in the 10/29 Nephrology Consult: Hypotension possibly related to underlying sepsis/pneumonia. Sepsis is not further documented in the record. Per the 10/28 Nursing Note: Pt experienced one episode of vomiting this evening at aprox 2000. Emesis appears to be partially digested food. Per pt's pt has been having intermittent episodes of vomiting for several months now that is not preceded by nausea. No c/o abd pain or tenderness, positive bowel sounds, and regular bowel movements per pt and pt's . Pt given given Pepcid and Zofran IV Additional clarification regarding the etiology/cause of the clinical indicators is requested. History/Risk Factors per the 10/27 ED Note: Dementia, Hyperlipidemia, Hypertension, Depression, Former smoker. Clinical Indicators: Presented to the ED on 10/27 via EMS with SOB, Altered Mental Status & weakness. ED Clinical Impression: CHF, NSTEMI, Lactic Acidosis, Acute Renal Failure Patient was made No Code by his in the ED. 10/27 VS: T 98.3, P 101, R 30 (SOB, labored, Shallow, Tachypnea), BP 105/55, PO 80 RA - 90 15% nrb 10/27 LAB: PT 16.1, INR 1.6, K 3.4, CO2 12, BUN 75, Cr 4.70, Glucose 192, Lactic Acid 8.3, 2.5, 2.2; Troponin 0.135, BNP 7420 10/27 CXR: Elevation of the left hemidiaphragm. 10/28 CXR: No acute pulmonary process. 10/27 EKG: R 104 Sinus tachycardia, ST & T wave abnormality, consider inferolateral ischemia, abnormal EKG. Treatment 10/27: IV Na Cl 1,000 mls @ 999 mls/hr q1H, IV Na Cl 500 mls @ 999 mls/hr q31M, IV Na Cl 1,000 mls @ 130 mls/hr q7H, IV Ativan 0.5 mg q6H, IV Morphine 4 mg q4H, IV Zofran 4 mg q6H, IV Pepcid 10 mg q12H, Heparin sq q12H. IV Heparin drip ordered but not given. 10/29: IV Lasix 60 mg x1, IV Zosyn, IV Dextrose/Water w/Na Bicarb. 10/30: IV Lasix 80 mg x1, IV Na Cl 1,000 mls @ 60 mls/hr q20H 10/30 Speech Terapy consulted, patient was not responsive enough to swallow pills. In your professional opinion, please clarify if these findings signify one of the following conditions: [ ] Sepsis POA [ ] Due to, please specify cause: [ ] Sepsis, Not POA [ x ] Sepsis ruled out [ ] Severe Sepsis with organ failure [ ] Septic Shock [ ] Other, please specify [ ] Unable to determine (Template Last Reviewed: May 2020) MTDD
--- NOTE | 2020-11-24 13:36 | CDI ---
Documentation Clarification Form Date: 11/24/2020 01:32:24 PM From: Janis Griffiths CCS, CCDS Admit Date: 10/27/2020 01:32:00 PM Patient Name: Shade Terry Visit Number: [id number] Discharge Date: 11/01/2020 11:01:00 PM ATTENTION: The Clinical Documentation Specialists (CDI) and [facility] Coding Staff appreciate your assistance in clarifying documentation. Please respond to the clarification below the line at the bottom and electronically sign. The CDI & [facility] Coding staff will review the response and follow-up if needed. Please note: Queries are made part of the Legal Health Record. If you have any questions, please contact the author of this message via ITS. Dr. Uriel Foote: Pneumonia is documented in the 10/29 Progress Note, Subsequent Progress Notes and in the Discharge Summary without further specificity. Per the 10/28 Nursing Note: Pt experienced one episode of vomiting this evening at aprox 2000. Emesis appears to be partially digested food. Per pt's pt has been having intermittent episodes of vomiting for several months now that is not preceded by nausea. No c/o abd pain or tenderness, positive bowel sounds, and regular bowel movements per pt and pt's . Pt given given Pepcid and Zofran IV Additional clarification regarding the etiology/cause of the clinical indicators is requested. History/Risk Factors per the 10/27 ED Note: Dementia, Hyperlipidemia, Hypertension, Depression, Former smoker. Clinical Indicators: Presented to the ED on 10/27 via EMS with SOB, Altered Mental Status & weakness. ED Clinical Impression: CHF, NSTEMI, Lactic Acidosis, Acute Renal Failure Patient was made No Code by his in the ED. 10/27 VS: T 98.3, P 101, R 30 (SOB, labored, Shallow, Tachypnea), BP 105/55, PO 80 RA - 90 15% nrb 10/27 LAB: PT 16.1, INR 1.6, K 3.4, CO2 12, BUN 75, Cr 4.70, Glucose 192, Lactic Acid 8.3, 2.5, 2.2; Troponin 0.135, BNP 7420 10/27 CXR: Elevation of the left hemidiaphragm. 10/28 CXR: No acute pulmonary process. 10/29 CXR: Right infrahilar and left lower retrocardiac infiltrates. Correlate for pneumonia or atelectasis. Treatment 10/27: IV Na Cl 1,000 mls @ 999 mls/hr q1H, IV Na Cl 500 mls @ 999 mls/hr q31M, IV Na Cl 1,000 mls @ 130 mls/hr q7H, IV Ativan 0.5 mg q6H, IV Morphine 4 mg q4H, IV Zofran 4 mg q6H, IV Pepcid 10 mg q12H, Heparin sq q12H. IV Heparin drip ordered but not given. 10/29: IV Lasix 60 mg x1, IV Zosyn, IV Dextrose/Water w/Na Bicarb. 10/30: IV Lasix 80 mg x1, IV Na Cl 1,000 mls @ 60 mls/hr q20H 10/30 Speech Terapy consulted, patient was not responsive enough to swallow pills. Please clarify the type of pneumonia, if known: [ x ] Aspiration Pneumonia, Due to food or vomitus [ ] Bacterial Pneumonia, specify causal organism (if known) [ ] Gram Negative Bacterial Pneumonia [ ] Viral Pneumonia, specify casual organism (if known) [ ] Pneumonia is ruled out [ ] Other, please specify [ ] Unable to determine (Template Last Revised: June 2020) MTDD
== END 2020-11-01 23:01 | disposition expired ==
LOC: EC 11:34 → 3SCARD 13:32
PROVIDERS: ADMIT Family Medicine; ATTEND Family Medicine
PROC: 06H033Z Insertion of Infusion Device into Inferior Vena Cava, Percutaneous Approach (ICD-10-PCS; principal; 2020-10-30 14:25)
PROC: 5A1D70Z Performance of Urinary Filtration, Intermittent, Less than 6 Hours Per Day (ICD-10-PCS; 2020-10-30 14:25)
DX: I21.4 Non-ST elevation (NSTEMI) myocardial infarction (principal); N17.0 Acute kidney failure with tubular necrosis; G93.41 Metabolic encephalopathy; J69.0 Pneumonitis due to inhalation of food and vomit; J96.01 Acute respiratory failure with hypoxia; I50.21 Acute systolic (congestive) heart failure; I13.0 Hypertensive heart and chronic kidney disease with heart failure and stage 1 through stage 4 chronic kidney disease, or unspecified chronic kidney disease; E87.2 Acidosis; N18.2 Chronic kidney disease, stage 2 (mild); I95.9 Hypotension, unspecified; F02.80 Dementia in other diseases classified elsewhere, unspecified severity, without behavioral disturbance, psychotic disturbance, mood disturbance, and anxiety; G30.9 Alzheimer's disease, unspecified; F32.9 Major depressive disorder, single episode, unspecified; R63.4 Abnormal weight loss; E78.5 Hyperlipidemia, unspecified; E87.6 Hypokalemia; M19.90 Unspecified osteoarthritis, unspecified site; Z66 Do not resuscitate; Z51.5 Encounter for palliative care; Z87.891 Personal history of nicotine dependence; Z68.24 Body mass index [BMI] 24.0-24.9, adult; Z98.890 Other specified postprocedural states; Z91.81 History of falling; Z79.899 Other long term (current) drug therapy; Z96.651 Presence of right artificial knee joint
CPT/HCPCS: 36415; 36556; 71045; 71046; 76770; 76937; 77001; 80048; 80053; 81001; 83605; 83735; 83880; 84484; 85025; 85027; 85610; 85730; 86704; 86706; 87040; 87340; 90935; 93005; 93306; 96360; 96361; 96374; 99291